=== PATIENT | female | born 1960 | race Caucasian/White ===

== ENCOUNTER 2020-08-07 08:00 | Outpatient (RCR) | payer OTHER, SELFPAY ==
--- NOTE | 2020-08-07 09:32 | MHC.PT.DC ---
[facility] [place] Office [place] Office [place] Office [address] Den[address] Panchal [address] [phone] F: [phone] F: [phone] F: [phone] F: [phone] Physical Therapy Discharge Report Diagnosis: R shoulder pain Date of Surgery: NA Date of Evaluation: 06/17/20 Date of Discharge: 08/07/20 Treatments to Date: 14 Cancellations to Date: 0 No Shows to Date: 0 Discharge Status: Achieved Goals Independent with HEP Discharge Summary: Pt has improved and is independent with all HEPS. She only has pain with hand behind the back IR and end range of shoulder abduction + ER. Pt however is functionally independent and does not have any limitations. Pt has achieved all goals set for her. Pt therefore d/c from therapy today and was advised to continue with shoulder and scap strengthening exercises. Electronically signed by: Beatriz Stearns DPT Please sign and return to therapist. Thank you for your referral.
== END 2020-08-07 09:34 | disposition other institution (70) ==
LOC: HO.PT 08:00
PROVIDERS: PCP Internal Medicine; Visit Provider Orthopaedic Surgery
DX: M24.9 Joint derangement, unspecified (principal)
CPT/HCPCS: 97033; 97110

== ENCOUNTER 2020-11-05 08:08 | Outpatient (REF) | payer BC, SELFPAY ==
--- NOTE | 2020-11-05 08:12 | MM_ITS ---
EXAMINATION: MM SCREENING DIGITAL BREAST TOMOSYNTHESIS, BILATERAL CLINICAL INFORMATION: Screening. Asymptomatic. The lifetime risk of breast cancer based on the Tyrer-Cuzick Model is 21%. COMPARISON: Mammography: 10/31/2019, 10/25/2018, 10/03/2017 TECHNIQUE: Digital breast tomosynthesis is performed in both the craniocaudal and mediolateral oblique views along with computer-aided detection (CAD). Synthesized 2D images are generated from the tomosynthesis. FINDINGS: The breasts are heterogeneously dense, which may obscure small masses (ACR BI-RADS breast composition Category c). There are no significant masses, abnormal calcifications, or other abnormalities. Parenchymal pattern is similar to prior study. No significant changes. MM/MM tomosynthesis screening BI IMPRESSION: No mammographic evidence of malignancy. ASSESSMENT: BI-RADS 1: Negative RECOMMENDATION: 1. Routine annual mammography screening. 2. The lifetime risk of breast cancer based on the Tyrer-Cuzick Model is 21%. Additional annual adjunct screening with breast MRI may be of benefit in women with a risk score of 20% or greater. This patient's information was entered into a reminder system with a target due date for their next mammogram.
== END 2020-11-05 08:09 | disposition home or self-care (01) ==
LOC: HO.MAMMO 08:08
PROVIDERS: PCP Internal Medicine; Visit Provider Internal Medicine
DX: Z12.31 Encounter for screening mammogram for malignant neoplasm of breast (principal)
CPT/HCPCS: 77063; 77067

== ENCOUNTER 2020-12-03 06:06 | Outpatient (REF) | payer BC, SELFPAY ==
[2020-12-03 08:12] LABS: Alanine Aminotransferase 22 U/L (0-31); Albumin Level 4.4 g/dL (3.5-5.0); Alkaline Phosphatase 67 U/L (39-117); Anion Gap 14 (12-20); Aspartate Amino Transferase 27 U/L (5-31); Bilirubin Total 0.9 mg/dL (0.0-1.0); Blood Urea Nitrogen 16 mg/dL (9-16); Calcium 9.5 mg/dL (8.4-10.2); Carbon Dioxide 24 mmol/L (22-29); Chloride 100 mmol/L (96-108); Cholesterol 217 mg/dL; Estimated Glomerular Filt Rate > 60; Glucose Fasting 97 mg/dL (60-99); HDL Cholesterol 63 mg/dL; LDL Cholesterol Calculated 136 mg/dl; Sodium 134 mmol/L (135-145); Total Protein 7.8 g/dL (6.5-8.0); Triglycerides 93 mg/dL
[2020-12-03 08:28] LABS: Vitamin D 25-OH Total 29.9 ng/mL (>30)
== END 2020-12-03 06:07 | disposition home or self-care (01) ==
LOC: HO.LAB 06:06
PROVIDERS: PCP Internal Medicine; Visit Provider Internal Medicine
DX: I10 Essential (primary) hypertension (principal); E55.9 Vitamin D deficiency, unspecified
CPT/HCPCS: 36415; 80053; 80061; 82306

== ENCOUNTER 2021-04-29 08:09 | Outpatient (REF) | payer BC, SELFPAY ==
--- NOTE | ~2021-04-29 | XR_ITS ---
EXAMINATION: XR KNEES, BILATERAL STANDING XR KNEE, RIGHT CLINICAL INFORMATION: Pain COMPARISON: 06/04/2012 TECHNIQUE: AP standing view of both knees and lateral and sunrise views of the right knee FINDINGS: AP standing view of both knees does not demonstrate evidence of fracture or dislocation. Knee joint spaces are maintained without marginal spurring appreciated. No destructive bony lesions. [place] and lateral views of the right knee do not demonstrate evidence of acute fracture or effusion. Sequela of Jake-Schlatter's disease identified. XR/XR knee standing BI IMPRESSION: No significant abnormality identified. Sequela of Jake-Schlatter's disease right knee.
--- NOTE | ~2021-04-29 | XR_ITS ---
EXAMINATION: XR KNEES, BILATERAL STANDING XR KNEE, RIGHT CLINICAL INFORMATION: Pain COMPARISON: 06/04/2012 TECHNIQUE: AP standing view of both knees and lateral and sunrise views of the right knee FINDINGS: AP standing view of both knees does not demonstrate evidence of fracture or dislocation. Knee joint spaces are maintained without marginal spurring appreciated. No destructive bony lesions. [place] and lateral views of the right knee do not demonstrate evidence of acute fracture or effusion. Sequela of Jake-Schlatter's disease identified. XR/XR knee RT 2V IMPRESSION: No significant abnormality identified. Sequela of Jake-Schlatter's disease right knee.
== END 2021-04-29 08:10 | disposition home or self-care (01) ==
LOC: HO.HOSX 08:09
PROVIDERS: Visit Provider Orthopaedic Surgery
DX: M23.91 Unspecified internal derangement of right knee (principal)
CPT/HCPCS: 73560; 73565

== ENCOUNTER 2021-05-11 07:16 | Outpatient (REF) | payer BC, SELFPAY ==
--- NOTE | ~2021-05-11 | MR_ITS ---
EXAMINATION: MR KNEE WITHOUT CONTRAST, RIGHT CLINICAL INFORMATION: Unspecified internal derangement of right knee. Patient reports right knee pain, medial, ?wear and tear, bending causes pain, swelling (subsided), no recent injury and no previous surgery. COMPARISON: XR right knee 04/29/2021. TECHNIQUE: MRI of the knee without contrast was performed using routine sequences on a high-field scanner. FINDINGS: MENISCI: Medial Meniscus: There is a subtle horizontal tear along the inferior surface of the posterior horn of the medial meniscus extending toward the junction with the body. There appears to be at least 1 extension to the mid inferior surface. There is focal irregular blunting of the free edge of the body consistent with fraying or tear. There may be a subtle thin inferiorly displaced flap-type fragment extending to the meniscotibial recess. Lateral Meniscus: Intact LIGAMENTS: Cruciate: Intact Collateral: Intact EXTENSOR MECHANISM: The quadriceps tendon is intact. There is intermediate signal and small ossifications associated with the distal patellar tendon, as well as hypertrophic change of the tibial tubercle, consistent with Jake-Schlatter's disease which is likely chronic. ARTICULAR CARTILAGE/BONE: Patellofemoral Compartment: There is a suggestion of mild cartilage thinning in the femoral trochlea. The patellar cartilage is intact. Medial Compartment: There is mild cartilage thinning in the central to medial weightbearing portion of the medial femoral condyle and the medial aspect of the medial tibial plateau. Lateral Compartment: Normal JOINT FLUID AND BURSAE: Normal MR/MR knee RT wo con IMPRESSION: 1. Undersurface tear at the junction of the posterior horn and body of the medial meniscus. Focal free-edge tear of the body and suspected subtle inferiorly displaced flap-type tear extending to the meniscotibial recess. 2. Old Jake-Schlatter's disease. 3. Mild arthrosis in the femoral trochlea and the weightbearing medial compartment.
== END 2021-05-11 07:17 | disposition home or self-care (01) ==
LOC: HO.MRI 07:16
PROVIDERS: Visit Provider Orthopaedic Surgery
DX: M23.91 Unspecified internal derangement of right knee (principal)
CPT/HCPCS: 73721

== ENCOUNTER → 2021-05-13 11:04 | Outpatient (BNVA) | payer BC, SELFPAY | PROVIDERS: PCP Internal Medicine; Visit Provider Orthopaedic Surgery ==

== ENCOUNTER 2021-06-02 08:27 | Day surgery (SDC) | payer BC, SELFPAY ==
--- NOTE | 2021-06-01 09:19 | P.CONAN_ITS ---
Documented by User: Angely Kinney NP 06/01/21 09:19 HPI - Anesthesia Eval Consult details Narrative: 60yo F for Right Knee Arthroscopy PMFSH Active Problems Active Problems: All Active Problems (Updated 05/13/21 @ 11:23 by Gaston Mccrary MD) Internal derangement of right knee (Acute) Tear of medial meniscus of right knee (Acute) Plantar fasciitis, right (Acute) Dyslipidemia (Acute) Hypovitaminosis D (Acute) Essential hypertension (Acute) Past Medical History Medical History Dyslipidemia Essential hypertension Hypovitaminosis D Plantar fasciitis, right Family History Family History Father Hypertension Diabetes CVD (cardiovascular disease) Mother Hypertension Thyroid disease Uterine cancer Breast cancer Maternal Aunt Breast cancer Sister Alive and well Surgical History Surgical History History of arthroscopy of left knee History of colonoscopy History of hand surgery Social History Social History Alcohol intake: current Alcohol intake frequency: a few times a month Alcohol type: beer Patient Tobacco Use Status: Former Tobacco user Quit Date: 2011 Tobacco use type: Cigarette Years Smoked: 20 Smoked in Last 30 Days: No Use of substances other than those prescribed or required for medical reasons: No Are you DNR?: No Advance Directives: No Advance Directives Information Provided: Yes Advance Directives Date on File: 07/10/20 Current occupational status: employed 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 Handed Meds Allergies Allergy/AdvReac Type Severity Reaction Status Date / Time cefazolin Allergy Unknown hives Verified 06/02/21 08:37 Exam Exam Date and Time: June 01, 2021 09 Assessment and Plan Assessment Anesthesia Assessment: Chart Reviewed Documented by User: Jaimee Huerta MD 06/02/21 08:56 PMFSH Past Medical History Medical History Dyslipidemia Essential hypertension Hypovitaminosis D Plantar fasciitis, right Family History Family History Father Hypertension Diabetes CVD (cardiovascular disease) Mother Hypertension Thyroid disease Uterine cancer Breast cancer Maternal Aunt Breast cancer Sister Alive and well Family history of problems with anesthesia: No Surgical History Surgical History History of arthroscopy of left knee History of colonoscopy History of hand surgery History of Problems with Anesthesia: No Social History Social History Alcohol intake: current Alcohol intake frequency: a few times a month Alcohol type: beer Patient Tobacco Use Status: Former Tobacco user Quit Date: 2011 Tobacco use type: Cigarette Years Smoked: 20 Smoked in Last 30 Days: No Use of substances other than those prescribed or required for medical reasons: No Are you DNR?: No Advance Directives: No Advance Directives Information Provided: Yes Advance Directives Date on File: 07/10/20 Current occupational status: employed 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 Allergies Allergy/AdvReac Type Severity Reaction Status Date / Time cefazolin Allergy Unknown hives Verified 06/02/21 08:37 Exam Airway Mallampati Class: II TM Dist: >3cm Neck ROM: Full Assessment and Plan Assessment Anesthesia Assessment: Anesthesia Plan Discussed Final Anesthetic Review Family History of Problems with Anesthesia: No History of Problems with Anesthesia: No NPO: Yes ASA Class: II Final Preanesthetic Review: No Changes in Pt Med Stat, Meds/Allgs Chart Reviewed, Consent Obtained/Reviewed and Anes Risks/Benef Reviewed Patient Risk: Low Procedure Risk: Low Assessment/Block/Sedation in SS: Assess/Block/Sedation-SS Anesthetic Plan Anesthetic Plan: GA Disposition: Standard PACU
[2021-06-02 08:40] VITALS: BMI 28.0
[2021-06-02 08:47] VITALS: BP 153/83; PULSE 83; RESP 16; TEMP 36.6; O2SAT 97
[2021-06-02] MEDS: Lactated Ringers 1,000 ML 100 ML IVCONT (08:57)
[2021-06-02 10:30] VITALS: BP 140/76; PULSE 83; RESP 12; TEMP 36.5; O2SAT 99
[2021-06-02 10:35] VITALS: BP 117/97; PULSE 89; RESP 16; O2SAT 95
[2021-06-02 10:40] VITALS: BP 136/73; PULSE 83; RESP 18; O2SAT 95
[2021-06-02 10:45] VITALS: BP 124/73; PULSE 80; RESP 18; O2SAT 95
--- NOTE | 2021-06-02 10:48 | MHC.SHP ---
Pre-Procedural Eval Section A Date of Service: 06/02/21 The patient is an INPATIENT: No Changes since office visit: Yes Patient answered all questions; No Cold of Flu in the past 2 weeks, No New Medical Problems and No Changes in Medication The History & Physical has been completed within 30 days and I have reviewed it.: Yes Section B Chief Complaint: tear of medial meniscus Allergies: Allergies Allergy/AdvReac Type Severity Reaction Status Date / Time cefazolin Allergy Unknown hives Verified 06/02/21 08:37 Plan I have reviewed the history and physical and performed a pertinent physical examination on my patient. No changes have occurred unless specified.
[2021-06-02 11:01] VITALS: BP 125/70; PULSE 77; RESP 18; TEMP 36.7; O2SAT 95
--- NOTE | 2021-06-25 13:58 | P.OP_ITS ---
Operative Note Operative Note Date of Service: 06/02/21 Narrative: Pre-op diagnosis: Right knee medial meniscus tear Post-op diagnosis: same Procedure: REight knee medial partial meniscectomy Surgeon: Gaston Mccrary MD Anesthesia: GETA and local Was an Research Tech used for this Procedure?: No Estimated blood loss (mL): 0 Pathology: none sent Condition: stable Disposition: PACU Patient was brought to the operating room placed supine on the arthroscopic table and prepped and draped in standard sterile fashion. A time-out was called to identify proper site proper procedure proper surgeon and IV antibiotics per weight were administered. I began by exsanguinating the limb and insufflating tourniquet to 300 mm Hg. Then made a standard anterolateral stab incision. The knee was insufflated with saline and a 30 degree arthroscope was placed. There was grade 1 fibrillations of the patella but overall suprapatellar pouch was clean and the gutters were clean. I descended into the medial compartment where I made my medial portal under direct visualization. There was obvious of complex tear of the body and posterior horn of the medial meniscus. Root was intact and there was grade 1 changes with some scattered grade 2 changes throughout the medial compartment. I used a combination of biter shaver and cautery to remove unstable portions of the meniscus. Approximally 40% meniscal volume was removed. Once I was satisfied with this the ACL was examined and found to be intact and the lateral compartment also was without the need for intervention. I then removed all instrumentation and closed the portals with skin glue. 25 mL of 2% Marcaine with epinephrine was injected into the joint and the surrounding soft tissues. Patient was then placed in sterile dressing extubated brought recovery room stable condition. There were no known complications.
--- NOTE | 2021-06-25 13:58 | P.BOP_ITS ---
Brief Operative Note Date of Service: 06/02/21 Pre-op diagnosis: Right knee medial meniscus tear Post-op diagnosis: same Procedure: REight knee medial partial meniscectomy Surgeon: Gaston Mccrary MD Anesthesia: GETA and local Was an Track Moving Machine Operator used for this Procedure?: No Estimated blood loss (mL): 0 Pathology: none sent Condition: stable Disposition: PACU
== END 2021-06-02 11:44 | disposition home or self-care (01) ==
PROVIDERS: PCP Internal Medicine; Visit Provider Orthopaedic Surgery
PROC: (CPT 29870; principal; 2021-06-02 10:00)
DX: S83.231A Complex tear of medial meniscus, current injury, right knee, initial encounter (principal); X58.XXXA Exposure to other specified factors, initial encounter; Y93.89 Activity, other specified; Y92.9 Unspecified place or not applicable; Y99.8 Other external cause status; M72.2 Plantar fascial fibromatosis; E78.5 Hyperlipidemia, unspecified; I10 Essential (primary) hypertension; E55.9 Vitamin D deficiency, unspecified; Z79.899 Other long term (current) drug therapy; Z88.1 Allergy status to other antibiotic agents; Z87.891 Personal history of nicotine dependence
CPT/HCPCS: 29881; J0171; J1100; J2250; J2405; J3010

== ENCOUNTER → 2021-06-10 09:05 | Outpatient (BNVA) | payer BC, SELFPAY | PROVIDERS: PCP Internal Medicine; Visit Provider Orthopaedic Surgery ==

== ENCOUNTER 2021-06-11 06:01 | Outpatient (REF) | payer BC, SELFPAY ==
[2021-06-11 07:51] LABS: Alanine Aminotransferase 13 U/L (0-31); Albumin Level 4.4 g/dL (3.5-5.0); Alkaline Phosphatase 69 U/L (39-117); Anion Gap 14 (12-20); Aspartate Amino Transferase 17 U/L (5-31); Bilirubin Total 0.9 mg/dL (0.0-1.0); Blood Urea Nitrogen 14 mg/dL (9-16); Calcium 9.8 mg/dL (8.4-10.2); Carbon Dioxide 22 mmol/L (22-29); Chloride 101 mmol/L (96-108); Cholesterol 221 mg/dL; Estimated Glomerular Filt Rate > 60; Glucose Fasting 103 mg/dL (60-99); HDL Cholesterol 57 mg/dL; LDL Cholesterol Calculated 132 mg/dl; Sodium 133 mmol/L (135-145); Total Protein 7.5 g/dL (6.5-8.0); Triglycerides 161 mg/dL
[2021-06-17 19:46] LABS: Vitamin D 25-OH, D2 <4 ng/mL; Vitamin D 25-OH, D3 40 ng/mL; Vitamin D 25-OH, Total 40 ng/mL (30-100)
== END 2021-06-11 06:02 | disposition home or self-care (01) ==
LOC: HO.LAB 06:01
PROVIDERS: PCP Internal Medicine; Visit Provider Internal Medicine
DX: E78.5 Hyperlipidemia, unspecified (principal); E55.9 Vitamin D deficiency, unspecified
CPT/HCPCS: 36415; 80053; 80061; 82306

== ENCOUNTER → 2021-07-09 09:34 | Outpatient (BNVA) | payer BC, SELFPAY | PROVIDERS: Visit Provider Orthopaedic Surgery | DX: S83.241A Other tear of medial meniscus, current injury, right knee, initial encounter (principal) | CPT/HCPCS: 20610; J1100 ==

== ENCOUNTER → 2021-07-26 09:19 | Outpatient (BNVA) | payer BC, SELFPAY | PROVIDERS: Visit Provider Orthopaedic Surgery ==

== ENCOUNTER 2021-08-05 08:00 | Outpatient (RCR) | payer BC, SELFPAY ==
--- NOTE | 2021-07-15 08:49 | MHC.PT.EP ---
[facility] [place] Office [place] Office [place] Office [address] Johan Panchal [address] [phone] F: [phone] F: [phone] F: [phone] F: [phone] Physical Therapy Plan of Care Date of Evaluation: Date of Surgery: 06/02/21 Diagnosis: other tear of medial meniscus, current injury, R knee Assessment: 61 y/o F s/p R knee menisectomy 06/02/21. She RTW but had increased pain, so she is OOW again. 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 Examination shows decreased R knee AROM (0-10-110), decreased R LE strength (especially glut strength), decreased R gastroc and quad length, increased TTP R medial TF joint line and pes anserine, and impaired gait pattern. She is a runner and would also like to return to running eventually. Recommend PT 2x/week for 6 weeks to address impairments, implement HEP, and optimize functional mobility. Frequency and Duration: The patient will be seen 2x/week for 5 weeks Short Term Goals: 3 weeks: 1. I with HEP 2. Improve R knee extension AROM to 0 3. Improve R knee flexion AROM to 120 4. Demonstrate SLR without lag 10/10x Halfway Goals: 6 weeks 1. I with HEP and self management of sx 2. Pt will improve R LE strength by one MMT to facilitate walking 3. Pt will ascend/descend stairs in step through pattern with pain < 3/10 4. Pt will be able to ambulate > 45 min without antalgic gait pattern and pain < 3/10 Treatment Plan: Modalities to reduce pain, spasms and effusion. Manual therapy to restore motion and function. Therapeutic exercise to improve strength and flexibility. Neuromuscular re-education for posture and balance. Therapeutic activities to return to functional activities of daily living. Electronically signed by: Halina Zazueta PT Please sign and return to therapist. Thank you for your referral.
--- NOTE | 2021-09-14 15:08 | MHC.PT.DC ---
[facility] [place] Office [place] Office [place] Office [address] Johan Panchal 140 [facility] [phone] F: [phone] F: [phone] F: [phone] F: [phone] Physical Therapy Discharge Report Diagnosis: other tear of medial meniscus, current injury, R knee Date of Surgery: 06/02/21 Date of Evaluation: 07/15/21 Date of Discharge: 09/14/21 Treatments to Date: 6 Cancellations to Date: 0 No Shows to Date: 0 Discharge Status: Discharge Summary: Pt was making gradual progress with ROM and strength, however she continues to have discomfort in knee. She requested f/u with orthopedics and holding PT. D/c at this time due to lack of f/u (pt was called but never returned calls.) Electronically signed by: Halina looney PT Please sign and return to therapist. Thank you for your referral.
== END 2021-09-14 15:08 | disposition home or self-care (01) ==
LOC: HO.PT 08:00
PROVIDERS: PCP Internal Medicine; Visit Provider Orthopaedic Surgery
DX: S83.241D Other tear of medial meniscus, current injury, right knee, subsequent encounter (principal)
CPT/HCPCS: 97014; 97110; 97161; 97530

== ENCOUNTER → 2021-08-23 08:25 | Outpatient (BNVA) | payer BC, SELFPAY | PROVIDERS: PCP Internal Medicine; Visit Provider Orthopaedic Surgery | DX: M17.11 Unilateral primary osteoarthritis, right knee (principal) | CPT/HCPCS: 20610; J1100 ==

== ENCOUNTER 2021-11-08 07:16 | Outpatient (REF) | payer BC, SELFPAY ==
--- NOTE | ~2021-11-08 | MM_ITS ---
EXAMINATION: MM SCREENING DIGITAL BREAST TOMOSYNTHESIS, BILATERAL CLINICAL INFORMATION: Screening. Asymptomatic. The lifetime risk of breast cancer based on the Tyrer-Cuzick Model is 14%. COMPARISON: Mammography: 11/05/2020, 10/31/2019, 10/25/2018, 09/28/2016 TECHNIQUE: Digital breast tomosynthesis is performed in both the craniocaudal and mediolateral oblique views along with computer-aided detection (CAD). Synthesized 2D images are generated from the tomosynthesis. FINDINGS: The breasts are heterogeneously dense, which may obscure small masses (ACR BI-RADS breast composition Category c). Right breast shows no significant change from prior studies. There is no developing density or architectural abnormality. Neither breast shows abnormal calcific. The bilateral axilla and skin contours are unremarkable. Left CC view has asymmetric density central breast 8 cm from nipple. There is no MLO correlate. Finding may represent summation artifact or incompletely compressed glandular tissue. Patient will be recalled for additional imaging. MM/MM tomosynthesis screening BI IMPRESSION: 1. Left: Asymmetric density central breast limited to CC view, possibly summation artifact or incompletely compressed glandular tissue. 2. Right: No mammographic evidence of malignancy. ASSESSMENT: BI-RADS 0: Incomplete - Need Additional Imaging Evaluation RECOMMENDATION: 1. Additional views of the left breast (spot CC; rolled CC x 2). 2. Targeted ultrasound if warranted after review of the additional views. 3. Radiology department staff will contact the patient for additional imaging. This patient's information was entered into a reminder system with a target due date for their next mammogram.
== END 2021-11-08 07:17 | disposition home or self-care (01) ==
LOC: HO.MAMMO 07:16
PROVIDERS: PCP Internal Medicine; Visit Provider Internal Medicine
DX: Z12.31 Encounter for screening mammogram for malignant neoplasm of breast (principal)
CPT/HCPCS: 77063; 77067

== ENCOUNTER 2021-11-25 13:49 | Outpatient (REF) | payer BC, SELFPAY ==
--- NOTE | ~2021-11-25 | MM_ITS ---
EXAMINATION: MM DIAGNOSTIC DIGITAL BREAST TOMOSYNTHESIS, LEFT CLINICAL INFORMATION: Recall from screening for asymmetric density central breast on CC view, likely summation artifact or incompletely compressed glandular tissue. COMPARISON: Mammography: 11/08/2021, 11/05/2020, 10/31/2019 TECHNIQUE: Digital breast tomosynthesis is performed. 2D images are generated from the tomosynthesis. The following views are obtained: Rolled CC x2, CC, spot CC. FINDINGS: The breasts are heterogeneously dense, which may obscure small masses (ACR BI-RADS breast composition Category c). Parenchymal pattern is similar to prior studies. There is no persistent asymmetric density and no underlying mass or architectural abnormality. Results are discussed with the patient at time of visit. MM/MM tomosynthesis added views L IMPRESSION: Additional views show no significant changes from prior exams. No persistent asymmetric density. ASSESSMENT: BI-RADS 1: Negative RECOMMENDATION: Routine annual mammography screening. This patient's information was entered into a reminder system with a target due date for their next mammogram.
== END 2021-11-25 13:50 | disposition home or self-care (01) ==
LOC: HO.MAMMO 13:49
PROVIDERS: PCP Internal Medicine; Visit Provider Internal Medicine
DX: R92.2 Inconclusive mammogram (principal)
CPT/HCPCS: 77061; 77065

== ENCOUNTER → 2021-12-16 09:19 | Outpatient (BNVA) | payer BC, SELFPAY | PROVIDERS: PCP Internal Medicine; Visit Provider Orthopaedic Surgery ==

== ENCOUNTER 2022-02-16 08:21 | Outpatient (REF) | payer BC, SELFPAY ==
[2022-02-22 10:47] LABS: HPV mRNA E6/E7 rflx Not Detected (Not Detected)
== END 2022-02-16 08:22 | disposition home or self-care (01) ==
LOC: HO.LAB 08:21
PROVIDERS: PCP Internal Medicine; Visit Provider Advanced Practice Midwife
DX: Z01.419 Encounter for gynecological examination (general) (routine) without abnormal findings (principal); Z11.51 Encounter for screening for human papillomavirus (HPV)
CPT/HCPCS: 87624; 88142

== ENCOUNTER → 2022-02-22 10:43 | Outpatient (BNVA) | payer BC, SELFPAY | PROVIDERS: PCP Internal Medicine; Visit Provider Nurse Practitioner Family | DX: M22.41 Chondromalacia patellae, right knee (principal) ==

== ENCOUNTER 2022-04-09 07:15 | Outpatient (REF) | payer BC, SELFPAY ==
[2022-04-09 08:09] LABS: Alanine Aminotransferase 20 U/L (0-31); Albumin Level 4.5 g/dL (3.5-5.0); Alkaline Phosphatase 68 U/L (39-117); Anion Gap 10 (12-20); Aspartate Amino Transferase 24 U/L (5-31); Bilirubin Total 0.8 mg/dL (0.0-1.0); Blood Urea Nitrogen 14 mg/dL (9-16); Calcium 9.8 mg/dL (8.4-10.2); Carbon Dioxide 26 mmol/L (22-29); Chloride 103 mmol/L (96-108); Cholesterol 217 mg/dL; Estimated Glomerular Filt Rate > 60; Glucose Fasting 103 mg/dL (60-99); HDL Cholesterol 59 mg/dL; LDL Cholesterol Calculated 141 mg/dl; Potassium 4.2 mmol/L (3.3-5.1); Sodium 135 mmol/L (135-145); Triglycerides 85 mg/dL
[2022-04-09 08:32] LABS: Thyroid Stimulating Hormone 1.38 uIU/mL (0.32-4.0)
[2022-04-14 11:17] LABS: Vitamin D 25-OH, D2 <4 ng/mL; Vitamin D 25-OH, D3 41 ng/mL; Vitamin D 25-OH, Total 41 ng/mL (30-100)
== END 2022-04-09 07:16 | disposition home or self-care (01) ==
LOC: HO.LAB 07:15
PROVIDERS: PCP Internal Medicine; Visit Provider Internal Medicine
DX: Z00.00 Encounter for general adult medical examination without abnormal findings (principal); E66.3 Overweight; E78.5 Hyperlipidemia, unspecified; E55.9 Vitamin D deficiency, unspecified
CPT/HCPCS: 36415; 80053; 80061; 82306; 84443

== ENCOUNTER 2022-05-11 06:03 | Outpatient (REF) | payer BC, SELFPAY ==
--- NOTE | ~2022-05-11 | FL_ITS ---
EXAMINATION: XR FLUOROSCOPY WITH IMAGES CLINICAL INFORMATION: M25.561 - Pain in right knee COMPARISON: Radiographs right knee 04/29/2021 TECHNIQUE: Fluoroscopy performed by Dr. Kaiser Francois. Fluoroscopy time: less than 10 seconds. Cumulative Dose: 0.486 mGy. DAP: 0.132 Gy-cm2. Images: 2. FINDINGS: There is a spinal needle adjacent to the femur at junction of diaphysis and metaphysis, medial side, mid depth. There is a spinal needle adjacent to the proximal tibia at junction of metaphysis and diaphysis on medial side mid depth. FL/FL guidance in treatment room IMPRESSION: Fluoroscopy for pain management procedures.
== END 2022-05-11 06:04 | disposition home or self-care (01) ==
LOC: HO.RADIR 06:03
PROVIDERS: Visit Provider Internal Medicine
DX: M22.41 Chondromalacia patellae, right knee (principal); M25.561 Pain in right knee
CPT/HCPCS: 64450; 64454

== ENCOUNTER 2022-11-10 07:17 | Outpatient (REF) | payer BC, SELFPAY ==
--- NOTE | ~2022-11-10 | MM_ITS ---
EXAMINATION: MM SCREENING DIGITAL BREAST TOMOSYNTHESIS, BILATERAL CLINICAL INFORMATION: Screening. Asymptomatic. The lifetime risk of breast cancer based on the Tyrer-Cuzick Model is 15%. COMPARISON: Mammography: November 25, 2021 and studies dating back to September 28, 2016 TECHNIQUE: Digital breast tomosynthesis is performed in both the craniocaudal and mediolateral oblique views along with computer-aided detection (CAD). Synthesized 2D images are generated from the tomosynthesis. FINDINGS: The breasts are heterogeneously dense, which may obscure small masses (ACR BI-RADS breast composition Category c). There are no significant masses, abnormal calcifications, or other abnormalities. MM/MM tomosynthesis screening BI IMPRESSION: No significant changes from prior exam. ASSESSMENT: BI-RADS 1: Negative RECOMMENDATION: Routine annual mammography screening. This patient's information was entered into a reminder system with a target due date for their next mammogram.
== END 2022-11-10 07:18 | disposition home or self-care (01) ==
LOC: HO.MAMMO 07:17
PROVIDERS: PCP Internal Medicine; Visit Provider Internal Medicine
DX: Z12.31 Encounter for screening mammogram for malignant neoplasm of breast (principal)
CPT/HCPCS: 77063; 77067

== ENCOUNTER 2023-03-28 07:20 | Outpatient (REF) | payer BC, SELFPAY ==
[2023-03-28 08:59] LABS: Alanine Aminotransferase 21 U/L (0-31); Albumin Level 4.3 g/dL (3.5-5.0); Alkaline Phosphatase 65 U/L (39-117); Anion Gap 14 (12-20); Aspartate Amino Transferase 26 U/L (5-31); Bilirubin Total 0.6 mg/dL (0.0-1.0); Blood Urea Nitrogen 13 mg/dL (9-16); Calcium 9.7 mg/dL (8.4-10.2); Carbon Dioxide 24 mmol/L (22-29); Chloride 104 mmol/L (96-108); Cholesterol 206 mg/dL; Estimated Glomerular Filt Rate > 60; Glucose Random 92 mg/dL (60-115); HDL Cholesterol 65 mg/dL; LDL Cholesterol Calculated 120 mg/dl; Potassium 3.6 mmol/L (3.3-5.1); Sodium 138 mmol/L (135-145); Total Protein 7.7 g/dL (6.5-8.0); Triglycerides 105 mg/dL
[2023-03-28 09:18] LABS: TSH reflex Free T4 2.74 uIU/mL (0.32-4.0); Vitamin D 25-OH Total 42.5 ng/mL (>30)
== END 2023-03-28 07:21 | disposition home or self-care (01) ==
LOC: HO.LAB 07:20
PROVIDERS: PCP Internal Medicine; Visit Provider Nurse Practitioner Family
DX: E78.5 Hyperlipidemia, unspecified (principal); E55.9 Vitamin D deficiency, unspecified; E03.9 Hypothyroidism, unspecified
CPT/HCPCS: 36415; 80053; 80061; 82306; 84443

== ENCOUNTER 2023-05-02 07:52 | Outpatient (AMB) | payer BC, SELFPAY ==
[2023-05-02 07:58] VITALS: BP 132/80; BMI 29.6
--- NOTE | 2023-05-02 08:00 | A.OFFPC_ITS ---
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 Accompanied by: Self / Same As Patient Allergies cefazolin Allergy (Intermediate, Verified 05/02/23 08:07) hives Medication List - Last Reconciled 05/02/23 by Kathy Hagen MD cholecalciferol (vitamin D3) 25 mcg PO DAILY 90 days hydrochlorothiazide 25 mg PO DAILY 90 days ibuprofen 800 mg PO TID PRN lisinopril 10 mg PO DAILY Tobacco use date assessed: 12/14/22 Dental Screening Dental Screen Date: 05/02/23 Did you have a dental visit in the last 12 months?: Yes Did you have a dental problem in the last 6 months where you did not have access to dental care?: No Was dental information given to patient?: Patient has dentist HPI HPI Comments History of Present Illness Details This is a 62-year-old female with hypertension, dyslipidemia, internal derangement of right knee and low vitamin-D that comes today for follow-up on her conditions. Blood pressure stable. Cholesterol has improved and since her [place] risk score of having a heart attack or a stroke in the next 10 years is 2.9% there is no need for statins. On ibuprofen for right knee pain that happens occasionally and is aggravated by activity. Vitamin-D normal on supplements. Denies any chest pain or shortness of breath. [facility] Medical History Dyslipidemia Essential hypertension Hypovitaminosis D [place]-Schlatter's disease Overweight (BMI 25.0-29.9) Physical exam Plantar fasciitis, right Surgical History History of arthroscopy of left knee History of arthroscopy of right knee History of colonoscopy History of hand surgery Family History Father Hypertension Diabetes CVD (cardiovascular disease) Mother Hypertension Thyroid disease Uterine cancer Breast cancer Ovarian cancer Bladder cancer Maternal Aunt Breast cancer Sister Alive and well Social History Housing: Condominium Alcohol intake: current Alcohol intake frequency: a few times a month Alcohol type: beer Patient Tobacco Use Status: Former Tobacco user Quit Date: 2011 Tobacco use type: Cigarette Years Smoked: 20 e-Cigarette/Vaping Use: Never Used Second Hand Smoke Exposure: No Advance Directives Date on File: 07/10/20 service: No Current occupational status: employed 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 Blayne Taylor, Auer Jaimes, Daniel Goodman and colleagues, with an educational luis miguel from [employer]. Review of Systems Const All systems reviewed & are unremarkable except as noted in HPI and below Eyes Reports no additional complaints, Denies change in vision and Denies other visual disturbances Card Denies chest pain at rest, Denies chest pain with activity, Denies edema, Denies irregular heart rhythm, Denies claudication, Denies dyspnea, Denies dyspnea on exertion, Denies orthopnea, Denies paroxysmal nocturnal dyspnea and Denies slow heart rate Resp Denies cough, Denies dyspnea and Denies dyspnea on exertion GI Denies abdominal pain, Denies change in bowel habits, Denies excessive flatus, Denies nausea and Denies vomiting Denies urinary incontinence, Denies urinary hesitancy and Denies urinary urgency Musc Denies abnormal gait, Denies atrophy, Denies deformity and Denies limited range of motion Skin/Breast Denies bleeding lesions, Denies changing lesions and Denies rash Neuro Denies abnormal gait and Denies lack of coordination Physical exam (Primary Care) Vital Signs: Last Vital Signs BP 132/80 05/02/23 07:58 BMI result Body Mass Index 29.6 Tobacco/Smoking Status: Tobacco use Status Tobacco use date assessed 12/14/22 05/02/23 08:03 Patient Tobacco Use Status Former Tobacco user 05/02/23 08:03 Tobacco use type Cigarette 05/02/23 08:03 e-Cigarette/Vaping Use Never Used 05/02/23 08:03 Thrive Assessment: Date of Thrive Assessment Date Thrive assessed 12/14/22 05/02/23 08:03 Eyes General: appearance normal, both eyes and all related structures Eyelids: Yes eyelids normal Conjunctivae: conjunctivae normal Neck Neck: Yes normal visual inspection and Yes supple Resp Effort & Inspection: normal respiratory effort Auscultation: clear to auscultation bilaterally Cardio Jugular venous distension: no JVD Rate: regular rate Rhythm: regular rhythm Heart sounds: S1 normal heart sound present and S2 normal heart sound present Extrem General: Yes full ROM Assessment and Plan Assessment & Plan (1) Essential hypertension: Code(s): I10 - Essential (primary) hypertension Plan: Continue lisinopril and hydrochlorothiazide. Blood pressure goal is equal or less than 130/80. (2) Hypovitaminosis D: Code(s): E55.9 - Vitamin D deficiency, unspecified Plan: Continue vitamin-D supplement (3) Dyslipidemia: Code(s): E78.5 - Hyperlipidemia, unspecified Plan: Continue low-cholesterol diet. (4) Internal derangement of right knee: Code(s): M23.91 - Unspecified internal derangement of right knee Plan: Continue ibuprofen as needed. Medications: Refilled ibuprofen 800 mg PO TID PRN 90 tabs 0RF pain Coding Level of Care Code Est Pt Level 4 (28265) Diagnoses Essential hypertension I10 Hypovitaminosis D E55.9 Dyslipidemia E78.5 Internal derangement of right knee M23.91 Time Spent (min) 21
== END 2023-05-02 08:25 | disposition home or self-care (01) ==
PROVIDERS: PCP Internal Medicine; Visit Provider Internal Medicine
DX: I10 Essential (primary) hypertension (principal); E55.9 Vitamin D deficiency, unspecified; E78.5 Hyperlipidemia, unspecified; M23.91 Unspecified internal derangement of right knee
CPT/HCPCS: 99214

== ENCOUNTER 2023-05-17 06:22 | Day surgery (SDC) | payer BC, SELFPAY ==
--- NOTE | 2023-05-16 10:17 | P.CONAN_ITS ---
Documented by User: Angely Kinney NP 05/16/23 10:18 HPI - Anesthesia Eval Consult details Narrative: 62yo F for Colonoscopy PMFSH Active Problems Active Problems: All Active Problems (Updated 02/24/22 @ 23:47 by DENILSON Villela) Jake-Schlatter's disease (Chronic) Right knee pain (Acute) Chondromalacia patellae of right knee (Acute) Overweight (BMI 25.0-29.9) (Acute) Physical exam (Acute) Arthritis of right knee (Acute) Internal derangement of right knee (Acute) Tear of medial meniscus of right knee (Acute) Plantar fasciitis, right (Acute) Dyslipidemia (Acute) Hypovitaminosis D (Acute) Essential hypertension (Acute) Past Medical History Medical History Dyslipidemia Essential hypertension Hypovitaminosis D Jake-Schlatter's disease Overweight (BMI 25.0-29.9) Physical exam Plantar fasciitis, right Family History Family History Father Hypertension Diabetes CVD (cardiovascular disease) Mother Hypertension Thyroid disease Uterine cancer Breast cancer Ovarian cancer Bladder cancer Maternal Aunt Breast cancer Sister Alive and well Family history of problems with anesthesia: No Surgical History Surgical History History of arthroscopy of left knee History of arthroscopy of right knee History of colonoscopy History of hand surgery History of Problems with Anesthesia: No Social History Social History Housing: Condominium Alcohol intake: current Alcohol intake frequency: a few times a month Alcohol type: beer Patient Tobacco Use Status: Former Tobacco user Quit Date: 11 yrs ago Tobacco use type: Cigarette Years Smoked: 20 e-Cigarette/Vaping Use: Never Used Second Hand Smoke Exposure: No Use of substances other than those prescribed or required for medical reasons: No Are you DNR?: No Advance Directives: No Advance Directives Information Provided: Yes Advance Directives Date on File: 07/10/20 service: No Current occupational status: employed 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 Current occupational exposures/hazards: No Sexual orientation: Straight/Heterosexual Gender identity: Female Cognitive needs: No Hearing needs: No Vision needs: No Meds Allergies Allergy/AdvReac Type Severity Reaction Status Date / Time cefazolin Allergy Intermediate hives Verified 05/17/23 06:29 sulfacetamide Allergy Unknown Verified 05/17/23 06:29 Exam Exam Date and Time: May 16, 2023 1017 Pertinent Lab Results Pertinent Lab Results: Laboratory Tests 03/28/23 07:31 Sodium 138 Potassium 3.6 Chloride 104 Carbon Dioxide 24 BUN 13 Creatinine 0.80 Assessment and Plan Assessment Anesthesia Assessment: Chart Reviewed Final Anesthetic Review Family History of Problems with Anesthesia: No History of Problems with Anesthesia: No Documented by User: Lis Powers MD 05/17/23 07:39 PMFSH Active Problems Active Problems: All Active Problems (Updated 02/24/22 @ 23:47 by DENILSON Villela) [place]-Schlatter's disease (Chronic) Right knee pain (Acute) Chondromalacia patellae of right knee (Acute) Overweight (BMI 25.0-29.9) (Acute) Physical exam (Acute) Arthritis of right knee (Acute) Internal derangement of right knee (Acute) Tear of medial meniscus of right knee (Acute) Plantar fasciitis, right (Acute) Dyslipidemia (Acute) Hypovitaminosis D (Acute) Essential hypertension (Acute) Denies SRUTHI Past Medical History Medical History Dyslipidemia Essential hypertension Hypovitaminosis D [place]-Schlatter's disease Overweight (BMI 25.0-29.9) Physical exam Plantar fasciitis, right Family History Family History Father Hypertension Diabetes CVD (cardiovascular disease) Mother Hypertension Thyroid disease Uterine cancer Breast cancer Ovarian cancer Bladder cancer Maternal Aunt Breast cancer Sister Alive and well Surgical History Surgical History History of arthroscopy of left knee History of arthroscopy of right knee History of colonoscopy History of hand surgery Social History Social History Housing: Condominium Alcohol intake: current Alcohol intake frequency: a few times a month Alcohol type: beer Patient Tobacco Use Status: Former Tobacco user Quit Date: 11 yrs ago Tobacco use type: Cigarette Years Smoked: 20 e-Cigarette/Vaping Use: Never Used Second Hand Smoke Exposure: No Use of substances other than those prescribed or required for medical reasons: No Are you DNR?: No Advance Directives: No Advance Directives Information Provided: Yes Advance Directives Date on File: 07/10/20 service: No Current occupational status: employed 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 Current occupational exposures/hazards: No Sexual orientation: Straight/Heterosexual Gender identity: Female Cognitive needs: No Hearing needs: No Vision needs: No Meds Allergies Allergy/AdvReac Type Severity Reaction Status Date / Time cefazolin Allergy Intermediate hives Verified 05/17/23 06:29 sulfacetamide Allergy Unknown Verified 05/17/23 06:29 Exam Height,Weight and Vital Signs: Height 5 ft 1 in Weight 70.307 kg Vital Signs Temp Pulse Resp BP Pulse Ox O2 Del Method 05/17/23 06:34 97.8 F 77 15 140/80 H 95 Room Air Airway Mallampati Class: III TM Dist: >3cm Neck ROM: Full Loose/Missing/Broken Teeth: No (Denies broken, loose, missing teeth. Implant intact) Heart: RRR Lungs: CTAB Assessment and Plan Assessment Anesthesia Assessment: Anesthesia Plan Discussed Final Anesthetic Review NPO: Yes ASA Class: II Final Preanesthetic Review: No Changes in Pt Med Stat, Meds/Allgs Chart Reviewed, Consent Obtained/Reviewed and Anes Risks/Benef Reviewed Patient Risk: Low Procedure Risk: Low Assessment/Block/Sedation in SS: Assess/Block/Sedation-SS Anesthetic Plan Anesthetic Plan: MAC: Disposition: Standard PACU
[2023-05-17 06:29] VITALS: BMI 29.3
[2023-05-17 06:34] VITALS: BP 140/80; PULSE 77; RESP 15; TEMP 36.6; O2SAT 95
[2023-05-17] MEDS: Lactated Ringers 1,000 ML 100 ML IVCONT (06:45)
--- NOTE | 2023-05-17 08:35 | PM.OP ---
Brief Operative Note Date of Service: 05/17/23 Pre-op diagnosis: Screening Post-op diagnosis: other (Diverticulosis) Procedure: Colonoscopy to the cecum and TI Surgeon: Blayne Swan Anesthesia: MAC Was an Center Human Resources Manager used for this Procedure?: No Estimated blood loss (mL): 0 Pathology: none sent Condition: stable Disposition: PACU
[2023-05-17 08:40] VITALS: BP 97/51; PULSE 65; RESP 14; TEMP 36.2; O2SAT 98
[2023-05-17 08:55] VITALS: BP 104/57; PULSE 59; RESP 16; TEMP 35.9; O2SAT 98
--- NOTE | 2023-05-17 09:10 | OP_ITS ---
DATE OF SERVICE: 05/17/2023 SURGEON: Blayne Swan MD INDICATIONS: The patient presents for followup of personal history of tubular adenoma of the colon and colorectal cancer screening. Full consent has been obtained from her for this, including risks of bleeding and perforation. PREOPERATIVE DIAGNOSIS: Colorectal cancer screening and personal history of tubular adenoma of the colon. POSTOPERATIVE DIAGNOSIS: PROCEDURE PERFORMED: Colonoscopy to the cecum and terminal ileum. ESTIMATED BLOOD LOSS: COMPLICATIONS: ANESTHESIA: Monitored anesthesia care. ASSISTANTS: SPECIMENS: POSTOPERATIVE DIAGNOSES: Colorectal cancer screening and personal history of tubular adenoma of the colon, sigmoid diverticulosis, and internal hemorrhoids. DESCRIPTION OF PROCEDURE: The patient was placed in the left lateral decubitus position. The digital rectal exam revealed no abnormalities. The Olympus video pediatric colonoscope was entered into the rectum and advanced easily to the cecum. Once in the cecum, I did identify normal-appearing cecal pouch with appendiceal orifice and a normal-appearing ileocecal valve. The terminal ileum was cannulated and appeared normal. The scope was withdrawn back in the colon. The entire cecum and ileocecal valve appeared normal. The scope was slowly withdrawn assessing all mucosal surfaces carefully. Preparation was excellent. I did not visualize any sign of polyps, colitis, nor angiodysplasia. There was a mild amount of sigmoid diverticulosis. In the rectum, scope was retroflexed visualizing small internal hemorrhoids, but no other pathology. The rectal mucosa appeared normal. Scope was straightened and withdrawn from the patient she tolerated the procedure well and was returned to the recovery area in stable condition. IMPRESSION: 1. Sigmoid diverticulosis. 2. Internal hemorrhoids. PLAN: I would recommend a repeat colonoscopy in 5 years for further screening. She will otherwise see me on a p.r.n. basis. MD BHAVESH Hutchins/CAROLYN / [phone]
== END 2023-05-17 09:22 | disposition home or self-care (01) ==
PROVIDERS: PCP Internal Medicine; Visit Provider Internal Medicine
PROC: 0DJD8ZZ Inspection of Lower Intestinal Tract, Via Natural or Artificial Opening Endoscopic (ICD-10-PCS; CPT 45378; principal; 2023-05-17 07:30)
DX: Z12.11 Encounter for screening for malignant neoplasm of colon (principal); K57.30 Diverticulosis of large intestine without perforation or abscess without bleeding; K64.8 Other hemorrhoids; Z86.010 Personal history of colon polyps; I10 Essential (primary) hypertension; Z79.899 Other long term (current) drug therapy
CPT/HCPCS: 45378

== ENCOUNTER 2023-11-23 07:35 | Outpatient (REF) | payer BC, SELFPAY ==
--- NOTE | ~2023-11-23 | MM_ITS ---
EXAMINATION: MM SCREENING DIGITAL BREAST TOMOSYNTHESIS, BILATERAL CLINICAL INFORMATION: Screening. Asymptomatic. COMPARISON: Mammography: This study is compared with prior exams dating back to 2020. TECHNIQUE: Digital breast tomosynthesis is performed in both the craniocaudal and mediolateral oblique views along with computer-aided detection (CAD). Synthesized 2D images are generated from the tomosynthesis. FINDINGS: The breasts are heterogeneously dense, which may obscure small masses (ACR BI-RADS breast composition Category c). There are grouped calcifications in the medial aspect of the right breast for which additional mammographic imaging with magnification is advised. In the left breast, no are no significant masses, abnormal calcifications, or other abnormalities. MM/MM tomosynthesis screening BI IMPRESSION: Grouped calcifications of the right breast warrant additional mammographic imaging with magnification. No mammographic signs of malignancy left breast. ASSESSMENT: BI-RADS BI-RADS 0 - Incomplete: Needs additional Imaging. RECOMMENDATION: Additional views of the right breast. Radiology department staff will contact the patient for additional imaging. Additional Imaging required This examination should not preclude the clinical evaluation of a suspicious palpable abnormality. This patient's information was entered into a reminder system with a target due date for their next mammogram.
== END 2023-11-23 07:36 | disposition home or self-care (01) ==
LOC: HO.MAMMO 07:35
PROVIDERS: PCP Internal Medicine; Visit Provider Internal Medicine
DX: Z12.31 Encounter for screening mammogram for malignant neoplasm of breast (principal)
CPT/HCPCS: 77063; 77067

== ENCOUNTER → 2023-11-23 07:45 | Outpatient (BNV) | payer BC, SELFPAY | PROVIDERS: PCP Internal Medicine; Visit Provider Radiology Diagnostic Radiology | DX: Z12.31 Encounter for screening mammogram for malignant neoplasm of breast (principal) | CPT/HCPCS: 77063; 77067 ==

== ENCOUNTER 2023-12-21 11:15 | Outpatient (REF) | payer BC, SELFPAY ==
--- NOTE | ~2023-12-21 | MM_ITS ---
EXAMINATION: MM DIAGNOSTIC DIGITAL MAMMOGRAPHY, RIGHT CLINICAL INFORMATION: Follow-up calcifications right breast seen 3:00 axis right breast, posterior one third depth. COMPARISON: Mammography: 11/23/2023, 11/10/2022, 11/25/2021, 11/08/2021, 11/05/2020, and dating back to 10/31/2019. TECHNIQUE: Digital mammography is performed in the following views: Full-field 3-D digital right mediolateral view, and 2-D spot compression right CC and ML views were obtained. FINDINGS: The breasts are heterogeneously dense, which may obscure small masses (ACR BI-RADS breast composition Category c). There are punctate grouped calcifications within the approximate 3:00 axis of the right breast, posterior one third, which have a coarse morphology and are likely benign/dystrophic. Minimal pleomorphism present. No linear, branching, or casting forms. No suspicious distribution. These are probably benign, and six-month follow-up diagnostic mammography right breast recommended to include standard magnification views. No additional abnormalities seen in the right breast. Results are provided to the patient at time of visit by the technologist. MM/MM added views RT IMPRESSION: Probably benign calcifications right breast 3:00 axis, posterior one third. These appear dystrophic and are probably benign. Six-month interval follow-up right mammography recommended. ASSESSMENT: BI-RADS BI-RADS 3 - Probably benign finding(s) - 12 month follow-up suggested RECOMMENDATION: 6 Month F/U This patient's information was entered into a reminder system with a target due date for their next mammogram.
== END 2023-12-21 11:16 | disposition home or self-care (01) ==
LOC: HO.MAMMO 11:15
PROVIDERS: PCP Internal Medicine; Visit Provider Internal Medicine
DX: R92.1 Mammographic calcification found on diagnostic imaging of breast (principal)
CPT/HCPCS: 77065

== ENCOUNTER → 2023-12-21 11:30 | Outpatient (BNV) | payer BC, SELFPAY | PROVIDERS: PCP Internal Medicine; Visit Provider Radiology Diagnostic Radiology | DX: R92.1 Mammographic calcification found on diagnostic imaging of breast (principal) | CPT/HCPCS: 77065 ==

== ENCOUNTER 2024-01-02 07:18 | Outpatient (AMB) | payer BC, SELFPAY ==
--- NOTE | 2024-01-02 07:36 | MHC.PC.OV ---
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 Required: No Accompanied by: Self / Same As Patient Allergies cefazolin Allergy (Intermediate, Verified 01/02/24 07:50) hives sulfacetamide Allergy (Verified 01/02/24 07:50) Unknown Medication List - Last Reconciled 01/02/24 by Kathy Hagen MD cholecalciferol (vitamin D3) 25 mcg PO DAILY 90 days hydrochlorothiazide 25 mg PO DAILY 90 days ibuprofen 800 mg PO TID PRN lisinopril 10 mg PO DAILY Tobacco use date assessed: 01/02/24 Fall risk assessment: No Falls in past year Last assessed Fall Risk: 01/02/24 Dental Screening Dental Screen Date: 01/02/24 Did you have a dental visit in the last 12 months?: Yes Did you have a dental problem in the last 6 months where you did not have access to dental care?: No Was dental information given to patient?: Patient has dentist HPI HPI Comments History of Present Illness Details This is a 63-year-old female that comes for her physical exam. Last mammogram was this month. Will be repeated in 6 months. Last colonoscopy was 2022 showing internal hemorrhoids and next colonoscopy should be in 5 years as per sonogram technician. Last Pap smear was 2021 and was normal. Bone density will be order. No chest pain or shortness of breath. Blood pressure stable. [facility] Medical History Jake-Schlatter's disease Overweight (BMI 25.0-29.9) Physical exam Plantar fasciitis, right Dyslipidemia Hypovitaminosis D Essential hypertension Surgical History (Updated 01/02/24 @ 07:54 by Kathy Hagen MD) History of arthroscopy of right knee History of arthroscopy of left knee History of hand surgery History of colonoscopy Family History Father Hypertension Diabetes CVD (cardiovascular disease) Mother Hypertension Thyroid disease Uterine cancer Breast cancer Ovarian cancer Bladder cancer Maternal Aunt Breast cancer Sister Alive and well Social History Housing: Condominium Alcohol intake: current Alcohol intake frequency: a few times a month Alcohol type: beer Patient Tobacco Use Status: Former Tobacco user Quit Date: 11 yrs ago Tobacco use type: Cigarette Years Smoked: 20 e-Cigarette/Vaping Use: Never Used Second Hand Smoke Exposure: No Advance Directives Date on File: 07/10/20 service: No Current occupational status: employed 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 1. Little interest or pleasure in doing things: not at all 2. Feeling down, depressed, or hopeless: not at all 3. Trouble falling or staying asleep, or sleeping too much: not at all 4. Feeling tired or having little energy: not at all 5. Poor appetite or overeating: not at all 6. Feeling bad about yourself - or that you are a failure or have let yourself or your family down: not at all 7. Trouble concentrating on things, such as reading the newspaper or watching television: not at all 8. Moving or speaking so slowly that other people could have noticed. Or the opposite - being so fidgety or restless that you have been moving around a lot more than usual: not at all 9. Thoughts that you would be better off or of hurting yourself in some way: not at all Total score: 0 Depression Screening Interpretation: Negative Depression Screening Done: Yes 89446 - PHQ-9 Billing: Yes Source: Developed by Drs. Blayne Taylor, Aure Jaimes, Daniel Goodman and colleagues, with an educational luis miguel from [employer]. Thrive Questionnaire Date Thrive assessed: 01/02/24 I am a: Patient What is your living situation today?: I have a steady place to live Within the past 12 months, did the food you bought not last and you didn't have the money to get more?: Never true Within the past 12 months, did you worry whether your food would run out before you got money to buy more?: Never true Do you have trouble paying for medicines?: No Do you have trouble getting transportation to medical appointments?: No Do you have trouble paying your heating and electricity bill?: No Do you have trouble taking care of your child, family member or friend?: No Do you have trouble with day-to-day activities such as bathing, preparing meals, shopping, managing finances, etc.?: No Are you currently unemployed and looking for a job?: No Are you interested in more education?: No Please select the resources that you would like help with: None Currently or been in a relationship where the following occur: no concerns reported THRIVE Score: 0 AUDIT C Alcohol Use Questionnaire (AUDIT-C) 1. How often do you have a drink containing alcohol?: Monthly or less 2. How many drinks containing alcohol do you have on a typical day when you are drinking?: 1 or 2 3. How often do you have six or more drinks on one occasion?: Never Total Score: 1 Score Reviewed/Action Taken: No SRIDHAR-7 AMB Questionnaire SRIDHAR-7 Date SRIDHAR - 7 assessed: 01/02/24 Feeling nervous, anxious, or on edge: 0 = Not at all Not being able to stop or control worryin = Not at all Worrying too much about different things: 0 = Not at all Trouble relaxin = Not at all Being so restless that it is hard to sit still: 0 = Not at all Becoming easily annoyed or irritable: 0 = Not at all Feeling afraid as if something awful might happen: 0 = Not at all Total SRIDHAR-7 score (0-4 normal; 5-9 mild; 10-14 moderate; 15-21 severe): 0 Source: Developed by Drs. Blayne Taylor, Aure Jaimes, Daniel Goodman and colleagues, with an educational luis miguel from [employer]. SRIDHAR-7 Assessment Billing SRIDHAR-7 Assessment Tool: SRIDHAR-7 Assessment 59787 Review of Systems Const All systems reviewed & are unremarkable except as noted in HPI and below Eyes Reports no additional complaints, Denies change in vision and Denies other visual disturbances Card Denies chest pain at rest, Denies chest pain with activity, Denies edema, Denies irregular heart rhythm, Denies claudication, Denies dyspnea, Denies dyspnea on exertion, Denies orthopnea, Denies paroxysmal nocturnal dyspnea and Denies slow heart rate Resp Denies cough, Denies dyspnea and Denies dyspnea on exertion GI Denies abdominal pain, Denies change in bowel habits, Denies excessive flatus, Denies nausea and Denies vomiting Denies urinary incontinence, Denies urinary hesitancy and Denies urinary urgency Musc Denies abnormal gait, Denies atrophy, Denies deformity and Denies limited range of motion Skin/Breast Denies bleeding lesions, Denies changing lesions and Denies rash Neuro Denies abnormal gait and Denies lack of coordination Physical exam (Primary Care) Vital Signs: Last Vital Signs BP 122/70 01/02/24 07:38 BMI result Body Mass Index 31.6 Tobacco/Smoking Status: Tobacco use Status Tobacco use date assessed 01/02/24 01/02/24 07:45 Patient Tobacco Use Status Former Tobacco user 01/02/24 07:45 Tobacco use type Cigarette 01/02/24 07:45 e-Cigarette/Vaping Use Never Used 01/02/24 07:45 PHQ-9: PHQ-9 Score PHQ-9: Total score 0 01/02/24 07:45 Depression Screening Interpretation: Negative Thrive Assessment: Date of Thrive Assessment Date Thrive assessed 01/02/24 01/02/24 07:45 Currently or been in a relationship where the following occur: no concerns reported Const Orientation/consciousness: patient oriented x3 [facility] Head: Yes normal to inspection, Yes normocephalic and Yes atraumatic Ears: external ears normal Eyes General: appearance normal, both eyes and all related structures Eyelids: Yes eyelids normal Conjunctivae: conjunctivae normal Neck Neck: Yes normal visual inspection and Yes supple Resp Effort & Inspection: normal respiratory effort Auscultation: clear to auscultation bilaterally Cardio Jugular venous distension: no JVD Rate: regular rate Rhythm: regular rhythm Heart sounds: S1 normal heart sound present and S2 normal heart sound present GI Inspection: Yes normal to inspection Palpation (GI): Soft to palpation and nontender Auscultation: normal bowel sounds Skin General skin exam: no rashes or lesions noted Neuro General: patient oriented x3 and no focal motor deficits Extrem General: Yes full ROM Psych Appearance: grossly normal Assessment and Plan Assessment & Plan (1) Physical exam: Code(s): Z00.00 - Encounter for general adult medical examination without abnormal findings Plan: Repeat in a year. Orders: Orders XR DEXA axial skeleton Today N95.9 - Unspecified menopausal and perimenopausal disorder Lipid Panel Today Z00.00 - Encounter for general adult medical examination without abnormal findings Comprehensive [place]. Panel Fast Today Z00.00 - Encounter for general adult medical examination without abnormal findings Coding Level of Care Code Est Pt Prev Care 40-64y(05360) Diagnoses Physical exam Z00.00 Additional Codes SRIDHAR-7 Assessment Billing - SRIDHAR-7 Assessment Tool: SRIDHAR-7 Assessment 20291 ([id number]) Time Spent (min) 32
[2024-01-02 07:38] VITALS: BP 122/70; BMI 31.6
== END 2024-01-02 08:00 | disposition home or self-care (01) ==
PROVIDERS: PCP Internal Medicine; Visit Provider Internal Medicine
DX: Z00.00 Encounter for general adult medical examination without abnormal findings (principal)
CPT/HCPCS: 99396

== ENCOUNTER 2024-01-12 08:07 | Outpatient (REF) | payer BC, SELFPAY ==
--- NOTE | ~2024-01-12 | MM_ITS ---
EXAMINATION: BONE DENSITOMETRY CLINICAL INDICATION: Unspecified menopausal and perimenopausal disorder. COMPARISON: This is the patient's baseline examination. TECHNIQUE: Using a [employer] DXA System (software version: 13.1) manufactured by [employer], dual-energy x-ray absorptiometry was performed of the lumbar spine and left hip. The images are of good technical quality. Summary results are attached. FINDINGS: LEFT FEMUR, NECK: BMD 0.981 g/cm2, Z-score 0.8, T-score -0.4, normal. LEFT FEMUR, TOTAL: BMD 1.093 g/cm2, Z-score 1.6, T-score 0.7, normal. AP SPINE L1-L4: BMD 1.096 g/cm2, Z-score 0.6, T-score -0.7, normal. IDENTIFIED RISK FACTORS: Low calcium intake, menopause. HISTORY OF FRACTURE: None listed. MEDICATIONS: Vitamin D. MM/XR DEXA axial skeleton IMPRESSION: 1. DIAGNOSIS: Normal bone density based on the lowest T-score value of -0.7 in the lumbar spine applying World Health Organization criteria. 2. 10-YEAR FRACTURE RISK PREDICTION, FRAX: According to the guidelines, FRAX calculation should only be performed on patients in the osteopenia bone density category. Therefore, FRAX was not performed on this patient. 3. Treatment Recommendations: NOF guidelines recommend consideration for treatment in postmenopausal women and men age 50 and older presenting with the following: -A hip or vertebral (clinical or morphometric) fracture. -T-score less than or equal to -2.5 at the femoral neck or spine after appropriate evaluation to exclude secondary causes. -Low bone mass at the hip or spine and a 10-year fracture probability by FRAX of greater than or equal to 3% for hip fracture or greater than or equal to 20% for major osteoporotic fracture based on the [place] adapted WHO algorithm. 4. Other Recommendations: All treatment decisions require clinical judgment and consideration of individual patient factors, including patient preferences, comorbidities, previous drug use, risk factors not captured in the FRAX model (e.g. frailty, falls, vitamin D deficiency, increased bone turnover, interval significant decline in bone density) and possible under or overestimation of fracture risk by FRAX. FUTURE SCAN RECOMMENDATION: People with diagnosed cases of osteoporosis or at high risk for fracture should have regular bone mineral density tests. For patients eligible for Medicare, routine testing is allowed once every 2 years. The testing frequency can be increased to one year for patients who have rapidly progressing disease, those who are receiving or discontinuing medical therapy to restore bone mass, or have additional risk factors.
== END 2024-01-12 08:08 | disposition home or self-care (01) ==
LOC: HO.MAMMO 08:07
PROVIDERS: PCP Internal Medicine; Visit Provider Internal Medicine
DX: Z13.820 Encounter for screening for osteoporosis (principal); Z78.0 Asymptomatic menopausal state
CPT/HCPCS: 77080

== ENCOUNTER 2024-07-03 10:50 | Outpatient (REF) | payer BC, SELFPAY ==
--- NOTE | ~2024-07-03 | MM_ITS ---
EXAMINATION: MM DIAGNOSTIC DIGITAL BREAST TOMOSYNTHESIS, RIGHT CLINICAL INFORMATION: 6 month follow-up for right breast calcifications. COMPARISON: Mammography: Comparison is made with a relevant prior imaging. TECHNIQUE: Digital breast tomosynthesis is performed in both the craniocaudal and mediolateral oblique views along with computer-aided detection (CAD). Synthesized 2D images are generated from the tomosynthesis. FINDINGS: There are scattered areas of fibroglandular density (ACR BI-RADS breast composition Category b). The previously seen grouped coarse heterogeneous calcifications in the central inner right breast posterior depth are not significantly changed on magnification views for 6 months. There are no significant masses or other abnormalities. MM/MM tomosynthesis diagnostic RT IMPRESSION: Probably benign right breast grouped calcifications. The common six-month follow-up with magnification views of the right breast when the patient is due for her annual mammography. ASSESSMENT: BI-RADS BI-RADS 3 - Probably benign finding(s) - 6 month follow-up suggested RECOMMENDATION: 6 Month F/U Results were provided to the patient at time of visit by the technologist. This patient's information was entered into a reminder system with a target due date for their next mammogram. Electronically signed by: Gisele Bernal DO 07/03/2024 12:13 PM EDT
== END 2024-07-03 10:51 | disposition home or self-care (01) ==
LOC: HO.MAMMO 10:50
PROVIDERS: PCP Internal Medicine; Visit Provider Internal Medicine
DX: R92.1 Mammographic calcification found on diagnostic imaging of breast (principal)
CPT/HCPCS: 77061; 77065

== ENCOUNTER → 2024-07-03 11:00 | Outpatient (BNV) | payer BC, SELFPAY | PROVIDERS: PCP Internal Medicine; Visit Provider Internal Medicine | DX: R92.1 Mammographic calcification found on diagnostic imaging of breast (principal) | CPT/HCPCS: 77061; 77065 ==

== ENCOUNTER 2024-07-09 06:00 | Outpatient (REF) | payer BC, SELFPAY ==
[2024-07-09 08:10] LABS: Alanine Aminotransferase 26 U/L (0-31); Alkaline Phosphatase 54 U/L (39-117); Anion Gap 14 (12-20); Aspartate Amino Transferase 35 U/L (5-31); Bilirubin Total 0.6 mg/dL (0.0-1.0); Blood Urea Nitrogen 16 mg/dL (9-16); Calcium 9.6 mg/dL (8.4-10.2); Carbon Dioxide 21 mmol/L (22-29); Chloride 107 mmol/L (96-108); Cholesterol 221 mg/dL (<200); Estimated Glomerular Filt Rate > 60; Glucose Fasting 91 mg/dL (60-99); HDL Cholesterol 55 mg/dL (>40); LDL Cholesterol Calculated 136 mg/dL (<100); Potassium 4.6 mmol/L (3.3-5.1); Sodium 137 mmol/L (135-145); Total Protein 7.9 g/dL (6.5-8.0); Triglycerides 152 mg/dL (<150)
== END 2024-07-09 06:01 | disposition home or self-care (01) ==
LOC: HO.LAB 06:00
PROVIDERS: PCP Internal Medicine; Visit Provider Internal Medicine
DX: Z00.00 Encounter for general adult medical examination without abnormal findings (principal)
CPT/HCPCS: 36415; 80053; 80061

== ENCOUNTER 2024-07-15 07:22 | Outpatient (AMB) | payer BC, SELFPAY ==
--- NOTE | 2024-07-15 07:29 | A.OFFPC_ITS ---
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 Required: No Accompanied by: Self / Same As Patient Allergies cefazolin Allergy (Intermediate, Verified 07/15/24 07:37) hives sulfacetamide Allergy (Verified 07/15/24 07:37) Unknown Medication List - Last Reconciled 07/15/24 by Kathy Hagen MD cholecalciferol (vitamin D3) 25 mcg PO DAILY 90 days hydrochlorothiazide 25 mg PO DAILY 90 days ibuprofen 800 mg PO TID PRN lisinopril 10 mg PO DAILY Tobacco use date assessed: 01/02/24 Fall risk assessment: No Falls in past year Last assessed Fall Risk: 07/15/24 Dental Screening Dental Screen Date: 07/15/24 Did you have a dental visit in the last 12 months?: Yes Did you have a dental problem in the last 6 months where you did not have access to dental care?: No Was dental information given to patient?: Patient has dentist HPI HPI Comments History of Present Illness Details This is a 64-year-old female with hypertension, dyslipidemia, right knee arthritis and low vitamin-D that comes today for follow-up on her conditions. Blood pressure borderline normal to elevated. She has not take her medications yet. Cholesterol elevated with a [place] risk score of 6.9% and this is why I will start her on statins. Side effects such as myalgias and transaminitis were discussed. On vitamin-D supplements for her low vitamin-D. She takes NSAIDs as needed for pain due to right knee arthritis. Able to walk with no assistive device. Declines flu vaccine today. [facility] Medical History Jake-Schlatter's disease Overweight (BMI 25.0-29.9) Physical exam Plantar fasciitis, right Dyslipidemia Hypovitaminosis D Essential hypertension Surgical History History of arthroscopy of right knee History of arthroscopy of left knee History of hand surgery History of colonoscopy Family History Father Hypertension Diabetes CVD (cardiovascular disease) Mother Hypertension Thyroid disease Uterine cancer Breast cancer Ovarian cancer Bladder cancer Maternal Aunt Breast cancer Sister Alive and well Social History Housing: Condominium Alcohol intake: current Alcohol intake frequency: a few times a month Alcohol type: beer Patient Tobacco Use Status: Former Tobacco user Tobacco use type: Cigarette Years Smoked: 20 e-Cigarette/Vaping Use: Never Used Second Hand Smoke Exposure: No Advance Directives Date on File: 07/10/20 service: No Current occupational status: employed 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 How often do you have a drink containing alcohol?: Monthly or less 2. How many drinks containing alcohol do you have on a typical day when you are drinking?: 1 or 2 3. How often do you have six or more drinks on one occasion?: Never Total Score: 1 Score Reviewed/Action Taken: No SRIDHAR-7 AMB Questionnaire SRIDHAR-7 Date SRIDHAR - 7 assessed: 01/02/24 Source: Developed by Drs. Blayne Taylor, Aure Jaimes, Daniel Goodman and colleagues, with an educational luis miguel from [employer] Review of Systems Const All systems reviewed & are unremarkable except as noted in HPI and below Card Denies chest pain at rest, Denies chest pain with activity, Denies edema, Denies irregular heart rhythm, Denies claudication, Denies dyspnea, Denies dyspnea on exertion, Denies orthopnea, Denies paroxysmal nocturnal dyspnea and Denies slow heart rate Resp Denies cough, Denies dyspnea and Denies dyspnea on exertion GI Denies abdominal pain, Denies change in bowel habits, Denies excessive flatus, Denies nausea and Denies vomiting Physical exam (Primary Care) Vital Signs: Last Vital Signs BP 140/80 H 07/15/24 07:52 BMI result Body Mass Index 31.0 Tobacco/Smoking Status: Tobacco use Status Tobacco use date assessed 01/02/24 07/15/24 07:31 Patient Tobacco Use Status Former Tobacco user 07/15/24 07:31 Tobacco use type Cigarette 07/15/24 07:31 e-Cigarette/Vaping Use Never Used 07/15/24 07:31 Thrive Assessment: Date of Thrive Assessment Date Thrive assessed 01/02/24 07/15/24 07:31 Resp Effort & Inspection: normal respiratory effort Auscultation: clear to auscultation bilaterally Cardio Jugular venous distension: no JVD Rate: regular rate Rhythm: regular rhythm Heart sounds: S1 normal heart sound present and S2 normal heart sound present Extrem General: Yes full ROM Office Procedures Flu Questionnaire Does the patient have a severe egg allergy?: No Immunizations Fluarix Triv [id number] (PF) 45 mcg (15 mcg x 3)/0.5 mL IM syringe Performing Provider: Kathy Hagen MD [facility] Documented (not given) by: CATARINA Downing on 07/15/24 07:53 Reason Not Given: Patient Refused Coding Level of Care Code Est Pt Level 4 (49858) Complex EM visit Add On G2211 Diagnoses Essential hypertension I10 Dyslipidemia E78.5 Hypovitaminosis D E55.9 Arthritis of right knee M17.11 Time Spent (min) 24 Assessment & Plan Assessment & Plan (1) Essential hypertension: Code(s): I10 - Essential (primary) hypertension Category: Medical Plan: Continue lisinopril and hydrochlorothiazide. Blood pressure goal is equal or less than 130/80. (2) Dyslipidemia: Code(s): E78.5 - Hyperlipidemia, unspecified Category: Medical Plan: Start statins. Repeat lipid panel in 6 months. Start low-cholesterol diet. (3) Hypovitaminosis D: Code(s): E55.9 - Vitamin D deficiency, unspecified Category: Medical Plan: Continue vitamin-D supplements. (4) Arthritis of right knee: Code(s): M17.11 - Unilateral primary osteoarthritis, right knee Category: Medical Plan: Continue NSAIDs as needed. Orders: Orders Lipid Panel 6 Months E78.5 - Hyperlipidemia, unspecified Comprehensive [place]. Panel Fast 6 Months I10 - Essential (primary) hypertension Vitamin D 25-OH Total 6 Months E55.9 - Vitamin D deficiency, unspecified Medications: New rosuvastatin 10 mg PO DAILY 90 days 90 tabs 2RF
[2024-07-15 07:32] VITALS: BP 154/86; BMI 31.0
[2024-07-15 07:52] VITALS: BP 140/80
== END 2024-07-15 07:42 | disposition home or self-care (01) ==
PROVIDERS: PCP Internal Medicine; Visit Provider Internal Medicine
DX: I10 Essential (primary) hypertension (principal); E78.5 Hyperlipidemia, unspecified; E55.9 Vitamin D deficiency, unspecified; M17.11 Unilateral primary osteoarthritis, right knee; Z23 Encounter for immunization

== ENCOUNTER → 2024-07-15 07:22 | Outpatient (BNVA) | payer BC, SELFPAY | PROVIDERS: PCP Internal Medicine; Visit Provider Internal Medicine | DX: I10 Essential (primary) hypertension (principal); E78.5 Hyperlipidemia, unspecified; E55.9 Vitamin D deficiency, unspecified; M17.11 Unilateral primary osteoarthritis, right knee; Z79.899 Other long term (current) drug therapy; Z28.21 Immunization not carried out because of patient refusal | CPT/HCPCS: 90471 ==

== ENCOUNTER 2024-12-26 06:11 | Outpatient (REF) | payer MEDICARE, SELFPAY ==
[2024-12-26 07:57] LABS: Alanine Aminotransferase 25 U/L (0-31); Albumin Level 4.2 g/dL (3.5-5.0); Anion Gap 13 (12-20); Aspartate Amino Transferase 27 U/L (5-31); Bilirubin Total 0.7 mg/dL (0.0-1.0); Blood Urea Nitrogen 17 mg/dL (9-16); Calcium 9.2 mg/dL (8.4-10.2); Carbon Dioxide 24 mmol/L (22-29); Chloride 106 mmol/L (96-108); Cholesterol 149 mg/dL (<200); Estimated Glomerular Filt Rate > 60; Glucose Fasting 106 mg/dL (60-99); HDL Cholesterol 67 mg/dL (>40); LDL Cholesterol Calculated 62 mg/dL (<100); Potassium 3.6 mmol/L (3.3-5.1); Sodium 139 mmol/L (135-145); Total Protein 7.9 g/dL (6.5-8.0); Triglycerides 102 mg/dL (<150)
[2024-12-26 08:01] LABS: Alkaline Phosphatase 60 U/L (39-117)
[2024-12-26 08:29] LABS: Vitamin D 25-OH Total 39.8 ng/mL (>30)
== END 2024-12-26 06:12 | disposition home or self-care (01) ==
LOC: HO.LAB 06:11
PROVIDERS: PCP Internal Medicine; Visit Provider Internal Medicine
DX: I10 Essential (primary) hypertension (principal); E78.5 Hyperlipidemia, unspecified; E55.9 Vitamin D deficiency, unspecified
CPT/HCPCS: 36415; 80053; 80061; 82306

== ENCOUNTER 2025-01-08 07:21 | Outpatient (AMB) | payer BC, SELFPAY ==
--- OUTSIDE RECORDS SUMMARY | 2025-01-08 07:24 | XMS_ITS | Patient Health Record ---
Author Organization [facility] Address [address] [place] [address] Care Team Providers Care Electromechanical Inspector Name Role Phone Kathy Silva Primary Care Provider Blayne Thompson Unavailable [phone] Allergies Allergen (clinical drug ingredient) Drug/Non Drug Allergy documented on EMR Reaction Allergy Type Onset Date Status sulfacetamide Sulfacetamide Unknown Drug Allergy Active Reason For Referral No Information Medications Medication SIG (Take, Route, Fr equency, Duration) Notes Start Date End Date Status hydroCHLOROthiazide Active Lisinopril Active Vitamin D 1000 UNIT 1 tablet Orally Once a day Active Problems Problem Type SNOMED Code ICD Code Onset Dates Problem Status W/U Status Risk Notes Problem [id number] Colon cancer screening (Z12.11) Active confirmed Problem 535710948 Encounter for screening for malignant neoplasm of colon (Z12.11) Active confirmed Problem 100665150 History of adenomatous polyp of colon (Z86.010) Active confirmed Problem History of polyp of colon (situation) (617216357) Personal history of colonic polyps (Z86.010) Active confirmed Problem Screening for malignant neoplasm of rectum (032855301) Encounter for screening for malignant neoplasm of rectum (Z12.12) Active confirmed Problem 92472164 Preprocedural examination (Z01.818) Active confirmed Problem 364985004365853 Pre-procedural examination (Z01.818) Active confirmed Problem Diverticulosis of colon (481283463) Diverticulosis of colon (K57.30) Active confirmed Plan Of Treatment Future Test Test Name Order Date COLONOSCOPY 10/13/2015 COLONOSCOPY 02/14/2023 Insurance Providers Payer Name Payer Address Payer Phone Subscriber Number Group Number Insured Name Patient Relationship to Insured Coverage Start Date Coverage End Date [facility] [employer] [address] [place] [address] [id number] Self - patient is the insured Medical (General) History Medical History History ICD Code Hypertension Denies ME,DM,CVA,Lung disease,renal dise ase Colonoscopy 12/2015 with a small tubular adenoma Surgical History Surgery Date(Month/Year) knee surgery
--- NOTE | 2025-01-08 07:33 | A.OFFPC_ITS ---
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 Accompanied by: Self / Same As Patient Allergies cefazolin Allergy (Intermediate, Verified 01/08/25 07:47) hives sulfacetamide Allergy (Verified 01/08/25 07:47) Unknown Medication List - Last Reconciled 01/08/25 by Kathy Hagen MD hydrochlorothiazide 25 mg PO DAILY 90 days ibuprofen 800 mg PO TID PRN lisinopril 10 mg PO DAILY rosuvastatin 10 mg PO DAILY 90 days Tobacco use date assessed: 01/08/25 Fall risk assessment: 1 Fall in past year Last assessed Fall Risk: 01/08/25 Dental Screening Dental Screen Date: 01/08/25 Did you have a dental visit in the last 12 months?: Yes Did you have a dental problem in the last 6 months where you did not have access to dental care?: No Was dental information given to patient?: Patient has dentist HPI HPI Comments History of Present Illness Details The patient is a 64-year-old female presenting for physical exam. She follows a routine preventive care schedule, including having received a tetanus vaccine in 2016 with the next one due in 2026. Post-64, she is scheduled to receive a pneumonia vaccine. A bone density scan conducted in 2023 returned normal, with the next scan due in January 2026. The patient had undergone a mammogram in June, resulting in probably benign findings in the right breast, necessitating a six-month follow-up. An annual mammogram for the left breast is also scheduled. Her Pap smear in 2021 excluded the need for further tests post-64. Following a colonoscopy by Dr. Swan in 2022 with no polyps detected, a return schedule will be communicated. The patient manages hypertension with 25 mg hydrochlorothiazide and 10 mg lisinopril, in addition to managing hyperlipidemia with 10 mg rosuvastatin, reduced to half due to adverse muscular symptoms. Her fasting blood glucose has risen to 106, suggesting the onset of prediabetes, which she is addressing with increased gym activity. Renal and hepatic functions are optimal. Cholesterol levels have improved from 221 to 149 following her medication adjustment. The patient uses ibuprofen as needed for knee pain and has voiced a preference for gel vitamin D supplements. - Tetanus vaccination: Administered in 2 017; next due in 2026. - Pneumonia vaccine: Recommended now as patient is over 65. - Bone density scan: Normal results in 2 024; next due in January 2026. - Mammogram: Follow-up scheduled for rig ht breast in six months and annual exam for left breast due now. - Last Pap smear: Completed in 2021; no further tests indicated as patient is over 65. - Colonoscopy in 2022: No polyps; follow -up interval to be determined. - Increased physical activity due to christal vated fasting blood glucose. [facility] Medical History Hilmar-Schlatter's disease Overweight (BMI 25.0-29.9) Physical exam Plantar fasciitis, right Dyslipidemia Hypovitaminosis D Essential hypertension Surgical History History of arthroscopy of right knee History of arthroscopy of left knee History of hand surgery History of colonoscopy Family History Father Hypertension Diabetes CVD (cardiovascular disease) Mother Hypertension Thyroid disease Uterine cancer Breast cancer Ovarian cancer Bladder cancer Maternal Aunt Breast cancer Sister Alive and well Social History Housing: Condominium Alcohol intake: current Alcohol intake frequency: a few times a month Alcohol type: beer Patient Tobacco Use Status: Former Tobacco user Tobacco use type: Cigarette Years Smoked: 20 e-Cigarette/Vaping Use: Never Used Second Hand Smoke Exposure: No Advance Directives Date on File: 07/10/20 service: No Current occupational status: employed 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 1. Little interest or pleasure in doing things: not at all 2. Feeling down, depressed, or hopeless: not at all 3. Trouble falling or staying asleep, or sleeping too much: not at all 4. Feeling tired or having little energy: not at all 5. Poor appetite or overeating: not at all 6. Feeling bad about yourself - or that you are a failure or have let yourself or your family down: not at all 7. Trouble concentrating on things, such as reading the newspaper or watching television: not at all 8. Moving or speaking so slowly that other people could have noticed. Or the opposite - being so fidgety or restless that you have been moving around a lot more than usual: not at all 9. Thoughts that you would be better off or of hurting yourself in some way: not at all Total score: 0 Depression Screening Interpretation: Negative Depression Screening Done: Yes 35105 - PHQ-9 Billing: Yes Source: Developed by Drs. Blayne Taylor, Aure Jaimes, Daniel Goodman and colleagues, with an educational luis miguel from [employer] [facility]. Thrive Questionnaire Date Thrive assessed: 01/01/25 I am a: Patient What is your living situation today?: I have a steady place to live Within the past 12 months, did the food you bought not last and you didn't have the money to get more?: I choose not to answer this question Within the past 12 months, did you worry whether your food would run out before you got money to buy more?: I choose not to answer this question Do you have trouble paying for medicines?: No Do you have trouble getting transportation to medical appointments?: No Do you have trouble paying your heating and electricity bill?: No Do you have trouble taking care of your child, family member or friend?: No Do you have trouble with day-to-day activities such as bathing, preparing meals, shopping, managing finances, etc.?: No Are you currently unemployed and looking for a job?: No Are you interested in more education?: No Please select the resources that you would like help with: None Currently or been in a relationship where the following occur: I choose not to answer THRIVE Score: 0 AUDIT C Alcohol Use Questionnaire (AUDIT-C) 1. How often do you have a drink containing alcohol?: 2-3 times a week 2. How many drinks containing alcohol do you have on a typical day when you are drinking?: 1 or 2 3. How often do you have six or more drinks on one occasion?: Never Total Score: 3 Score Reviewed/Action Taken: No SRIDHAR-7 AMB Questionnaire SRIDHAR-7 Date SRIDHAR - 7 assessed: 01/08/25 Feeling nervous, anxious, or on edge: 0 = Not at all Not being able to stop or control worryin = Not at all Worrying too much about different things: 0 = Not at all Trouble relaxin = Not at all Being so restless that it is hard to sit still: 0 = Not at all Becoming easily annoyed or irritable: 0 = Not at all Feeling afraid as if something awful might happen: 0 = Not at all Total SRIDHAR-7 score (0-4 normal; 5-9 mild; 10-14 moderate; 15-21 severe): 0 Source: Developed by Drs. Blayne Taylor, Aure Jaimes, Daniel Goodman and colleagues, with an educational luis miguel from [facility] [facility]. SRIDHAR-7 Assessment Billing SRIDHAR-7 Assessment Tool: SRIDHAR-7 Assessment 16759 Review of Systems Const All systems reviewed & are unremarkable except as noted in HPI and below Card Denies chest pain at rest, Denies chest pain with activity, Denies edema, Denies irregular heart rhythm, Denies claudication, Denies dyspnea, Denies dyspnea on exertion, Denies orthopnea, Denies paroxysmal nocturnal dyspnea and Denies slow heart rate Resp Denies cough, Denies dyspnea and Denies dyspnea on exertion GI Denies abdominal pain, Denies change in bowel habits, Denies excessive flatus, Denies nausea and Denies vomiting Denies urinary incontinence, Denies urinary hesitancy and Denies urinary urgency Musc Denies atrophy, Denies deformity and Denies limited range of motion Skin/Breast Denies bleeding lesions, Denies changing lesions and Denies rash Physical exam (Primary Care) Vital Signs: Last Vital Signs BP 132/86 01/08/25 07:34 BMI result Body Mass Index 30.2 Tobacco/Smoking Status: Tobacco use Status Tobacco use date assessed 01/08/25 01/08/25 07:41 Patient Tobacco Use Status Former Tobacco user 01/08/25 07:41 Tobacco use type Cigarette 01/08/25 07:41 e-Cigarette/Vaping Use Never Used 01/08/25 07:41 PHQ-9: PHQ-9 Score PHQ-9: Total score 0 01/08/25 08:46 Depression Screening Interpretation: Negative Thrive Assessment: Date of Thrive Assessment Date Thrive assessed 01/01/25 01/08/25 07:41 Currently or been in a relationship where the following occur: I choose not to answer HENMT Head: Yes normal to inspection, Yes normocephalic and Yes atraumatic Ears: external ears normal Eyes General: appearance normal, both eyes and all related structures Eyelids: Yes eyelids normal Conjunctivae: conjunctivae normal Neck Neck: Yes normal visual inspection and Yes supple Resp Effort & Inspection: normal respiratory effort Auscultation: clear to auscultation bilaterally Cardio Jugular venous distension: no JVD Rate: regular rate Rhythm: regular rhythm Heart sounds: S1 normal heart sound present and S2 normal heart sound present GI Inspection: Yes normal to inspection Palpation (GI): Soft to palpation and nontender Auscultation: normal bowel sounds Skin General skin exam: no rashes or lesions noted Neuro General: no focal motor deficits Extrem General: Yes full ROM Psych Appearance: grossly normal Coding Level of Care Code Est Pt Prev Care >65y(45097) Diagnoses Physical exam Z00.00 Additional Codes SRIDHAR-7 Assessment Billing - SRIDHAR-7 Assessment Tool: SRIDHAR-7 Assessment 75835 ([id number]) PHQ-9 - 95308 - PHQ-9 Billing: Yes ([id number]) Time Spent (min) 30 Assessment & Plan Assessment & Plan (1) Physical exam: Code(s): Z00.00 - Encounter for general adult medical examination without abnormal findings Category: Medical Plan The plan involves administering the pneumonia vaccine for optimal preventive health care. Follow-up imaging is scheduled to monitor right breast findings, while the left breast will be evaluated for the annual exam. No further Pap smears are necessary due to the patient's age. Reevaluate fasting blood glucose in six months following lifestyle modifications. Adjust rosuvastatin dosage for enhanced tolerance and sustained cholesterol management, keeping the adjusted hydrochlorothiazide and lisinopril regimen intact for blood pressure control. The current approach to osteoarthritic knee pain is effective; hence continued usage of ibuprofen is sanctioned. Heightened physical activity is encouraged with the aid of healthcare-sponsored gym access. The patient is advised to persist with gel-based vitamin D supplementation due to personal preference. Patient was informed and verbally consented to the use of an ambient scribe for clinic note documentation during this visit. I explained the importance of the pneumonia vaccine given its preventive capacity for individuals over 65. We discussed the findings from the recent mammogram. I detailed the recommended follow-up intervals and importance, particularly for the right breast presentation. The patient understood that no further Pap smears are required, relying on the cessation guidelines after 65. I reviewed blood glucose readings, proposing lifestyle adjustments and regular monitoring to forestall diabetes progression. The patient will maintain a reduced rosuvastatin dose to alleviate musculoskeletal symptoms, monitoring cholesterol closely. I acknowledged her antihypertensive therapy's efficacy. For her knee symptoms, ibuprofen remains suitable, and the patient was encouraged to maintain her [employer] gym routine; her enthusiasm for this initiative indicates positive health engagement. We discussed the convenience of gel vitamin D, approving its continued use. Consent for all current and future interventions was obtained. Orders: Orders Pneumococcal 23 Immunization Today Z23 - Encounter for immunization Lipid Panel 6 Months E78.5 - Hyperlipidemia, unspecified Vitamin D 25-OH Total 6 Months E55.9 - Vitamin D deficiency, unspecified Comprehensive [place]. Panel Fast 6 Months R73.02 - Impaired glucose tolerance (oral) Medications: New Pneumovax-23 (pneumococcal 23-margie ps vaccine) 0.5 mL IM ONCE 0.5 mL 0RF NS Z23 - Encounter for immunization rosuvastatin 5 mg PO DAILY 90 tabs 1RF 90 days Discontinued rosuvastatin Discontinued Reason: Patient Completed Course 10 mg PO DAILY 90 days 90 tabs 2RF Patient Instructions: - Obtain pneumonia vaccine today. - Attend mammogram follow-up and annual evaluations as scheduled. - Maintain reduced rosuvastatin dosage and monitor effects. - Continue antihypertensive regimen with hydrochlorothiazide and lisinopril. - Recheck blood glucose in six months. - Engage in regular physical activity and gym sessions. - Use ibuprofen for knee pain as required. - Continue gel vitamin D supplements.
[2025-01-08 07:34] VITALS: BP 132/86; BMI 30.2
== END 2025-01-08 08:12 | disposition home or self-care (01) ==
LOC: HO.HMCH 07:22
PROVIDERS: PCP Internal Medicine; Visit Provider Internal Medicine
DX: Z23 Encounter for immunization (principal); Z00.00 Encounter for general adult medical examination without abnormal findings

== ENCOUNTER 2025-01-08 13:52 | Outpatient (REF) | payer MEDICARE, SELFPAY ==
--- NOTE | ~2025-01-08 | MM_ITS ---
EXAMINATION: MM DIAGNOSTIC DIGITAL BREAST TOMOSYNTHESIS, BILATERAL CLINICAL INFORMATION: 12 month follow-up for calcifications in the upper inner right breast. COMPARISON: Mammography: Comparison is made with relevant prior exams. TECHNIQUE: Digital breast mammography with tomosynthesis is performed in both the craniocaudal and mediolateral oblique views along with computer-aided detection (CAD). FINDINGS: The breasts are heterogeneously dense, which may obscure small masses (ACR BI-RADS breast composition Category c). Previously seen calcifications in the upper inner right breast have coalesced into one dystrophic calcification on magnification views and is benign. There are no significant masses, abnormal calcifications, or other abnormalities. Results are provided to the patient at time of visit by the technologist. MM/MM tomosynthesis diagnostic BI IMPRESSION: No mammographic evidence of malignancy. ASSESSMENT: BI-RADS BI-RADS 2 - Benign Findings RECOMMENDATION: 1 year F/U This patient's information was entered into a reminder system with a target due date for their next mammogram. Electronically signed by: Gisele Bernal DO 01/08/2025 02:54 PM EDT
== END 2025-01-08 13:53 | disposition home or self-care (01) ==
LOC: HO.MAMMO 13:52
PROVIDERS: PCP Internal Medicine; Visit Provider Internal Medicine
DX: Z00.00 Encounter for general adult medical examination without abnormal findings (principal); Z23 Encounter for immunization; R92.1 Mammographic calcification found on diagnostic imaging of breast
CPT/HCPCS: 77062; 77066; 90471; 90732; 96127; 99397

== ENCOUNTER → 2025-01-08 14:00 | Outpatient (BNV) | payer MEDICARE, SELFPAY | PROVIDERS: PCP Internal Medicine; Visit Provider Internal Medicine | DX: R92.1 Mammographic calcification found on diagnostic imaging of breast (principal) | CPT/HCPCS: 77066; G0279 ==

== ENCOUNTER 2025-04-01 14:26 | Outpatient (AMB) | payer OTHER, SELFPAY ==
[2025-04-01 14:29] VITALS: BMI 30.2
--- NOTE | 2025-04-01 14:29 | A.OFFVIS_ITS ---
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 States she is having pain in her thumb with grabbing, pinching and when doing her hair. At times her thumb locks and is very painful. Patient reports this started in February 2025 and has progressively worsen. Denies any injury, numbness, tingling. 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 States she is having pain in her thumb with grabbing, pinching and when doing her hair. At times her thumb locks and is very painful. Patient reports this started in February 2025 and has progressively worsen. Denies any injury, numbness, tingling. Pain at the volar base of the right thumb whenever it is pushed. [facility] Medical History Jake-Schlatter's disease Overweight (BMI 25.0-29.9) Physical exam Plantar fasciitis, right Dyslipidemia Hypovitaminosis D Essential hypertension Surgical History History of arthroscopy of right knee History of arthroscopy of left knee History of hand surgery History of colonoscopy Family History Father Hypertension Diabetes CVD (cardiovascular disease) Mother Hypertension Thyroid disease Uterine cancer Breast cancer Ovarian cancer Bladder cancer Maternal Aunt Breast cancer Sister Alive and well Social History Housing: Condominium Alcohol intake: current Alcohol intake frequency: a few times a month Alcohol type: beer Patient Tobacco Use Status: Former Tobacco user Tobacco use type: Cigarette Years Smoked: 20 e-Cigarette/Vaping Use: Never Used Second Hand Smoke Exposure: No Advance Directives Date on File: 07/10/20 service: No Current occupational status: employed 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 Neuro: Normal sensation of the tips of all digits of the right hand at this time Vascular: Cap refill brisk Pain: Tenderness to palpation of the A1 darshan of right thumb Pain with locking and catching of right thumb ROM: There is visible and palpable locking and catching of the right thumb Skin: No lacerations or abrasions. General: No ecchymosis, erythema, or evidence of infection. Psych: Appears grossly normal Affect normal Attitude cooperative Assessment & Plan Assessment & Plan (1) Trigger thumb, right thumb: Code(s): M65.311 - Trigger thumb, right thumb Category: Medical Plan 1. Trigger thumb, right thumb I educated the patient about the condition. I discussed both operative and nonoperative treatment options. The patient would like to proceed with surgery. The risks and benefits of operative treatment were discussed with the patient and the patient wishes to proceed with surgery. These risks include, but are not limited to, risk of damage to blood vessels, nerves, tendons, infection, recurrence, incomplete relief of preoperative symptoms, persistent pain, possible need for further surgery, and the risks associated with regional blocks and/or anesthesia. Plan is to take the patient to the operating room at some point in the next few weeks for the following procedures: 1. Right trigger thumb release under local All of the preoperative paperwork including the consent was discussed today. All of the patient's questions were answered in the clinic today. The patient understands that they will be in contact with our human resources supervisor to discuss scheduling their procedure. Patient denies diabetes, blood thinners, asthma, heart issues, lung issues, kidney issues, or current smoking. Coding Level of Care Code Est Pt Level 4 (48966) Diagnoses Trigger thumb, right thumb M65.311
--- OUTSIDE RECORDS SUMMARY | 2025-04-01 17:37 | XMS_ITS | Patient Health Record ---
Author Organization [facility] Address [address] [place] [address] Care Team Providers Care Director Occupational Name Role Phone Kathy Silva Primary Care Provider Blayne Thompson Unavailable [phone] Allergies Allergen (clinical drug ingredient) Drug/Non Drug [...] Problem Status W/U Status Risk Notes Problem 946091535 Colon cancer screening (Z12.11) Active confirmed Problem 724474411 Encounter for screening for malignant neoplasm of colon (Z12.11) Active confirmed Problem 683672647 History of adenomatous polyp of colon (Z86.010) Active confirmed Problem History of polyp of colon (situation) (459238173) Personal history of colonic polyps (Z86.010) Active confirmed Problem Screening for malignant neoplasm of rectum (642981997) Encounter for screening for malignant neoplasm of rectum (Z12.12) Active confirmed Problem 13764881 Preprocedural examination (Z01.818) Active confirmed Problem 307993506710483 Pre-procedural examination (Z01.818) Active confirmed Problem Diverticulosis of colon (472344239) Diverticulosis of colon (K57.30) Active confirmed Plan Of Treatment Future Test Test Name Order Date COLONOSCOPY 10/13/2015 COLONOSCOPY 02/14/2023 Insurance Providers Payer Name Payer Address Payer Phone Subscriber Number Group Number Insured Name Patient Relationship to Insured Coverage Start Date Coverage End Date [facility] [address] [place] [address] [phone] [id number] GUILLAUME Self - patient is the insured Medical (General) History Medical History History ICD Code Hypertension Denies NE,DM,CVA,Lung disease,renal dise ase Colonoscopy 12/2015 with a small tubular adenoma Surgical History Surgery Date(Month/Year) knee surgery
== END 2025-04-01 14:59 | disposition home or self-care (01) ==
PROVIDERS: PCP Internal Medicine
DX: M65.311 Trigger thumb, right thumb (principal)
CPT/HCPCS: 99204

== ENCOUNTER → 2025-04-01 14:26 | Outpatient (BNVA) | payer MEDICARE, SELFPAY | PROVIDERS: PCP Internal Medicine | DX: Z13.89 Encounter for screening for other disorder (principal) ==

== ENCOUNTER 2025-04-21 08:16 | Day surgery (SDC) | payer MEDICARE, SELFPAY ==
[2025-04-21 09:42] VITALS: BMI 31.6
--- NOTE | 2025-04-21 10:06 | P.OP_ITS ---
Operative Note Operative Note Date of Service: 04/21/25 Narrative: Operative Note Preop diagnosis: 1. Right trigger thumb Postop diagnosis: Same Procedure: 1. Right thumb A1 darshan release Surgeon: Gina Serrano MD International Logistics Analyst: José Luis DRAPER Anesthesia: local block using 1% lidocaine with epinephrine Findings: No locking or catching after A1 darshan release EBL: Less than 5 mL Tourniquet time: None Specimens: None Complications: None Disposition: Brought to recovery room in stable condition Plan: Follow-up for 10-14 days for wound check and suture removal Indications: The patient is 64 years old, with a right trigger thumb that has been unresponsive to nonoperative management. The risks and benefits of operative treatment including but not limited to risk of damage to blood vessels, nerves, tendons, infection, persistent pain, persistent symptoms, recurrence or possible need for additional surgery were discussed with the patient and the patient wishes to proceed with surgery. Procedure: Once consent was obtained a local block was performed in the preop area using a combination of 1% lidocaine with epinephrine. The patient was then brought back to the operating suite and placed on the operative table in supine position. The right upper extremity was prepped and draped in a standard surgical fashion. Once assured that we had a good block, a 1.5 cm oblique incision was made centered over the A1 darshan of the right thumb . The incision was made through the skin to the subcutaneous tissues using a #15 blade. Careful dissection was made down to the level of the A1 darshan using tenotomy scissors, with care being taken to protect the nearby neurovascular structures. A longitudinal incision was made in the A1 darshan 1st using a #15 blade, then using tenotomy scissors under direct visualization. The A1 darshan was noted to be thickened. Following our A1 darshan release, we no longer saw any locking or catching of the digit with flexion and extension. Once satisfied with our A1 darshan release the wound was copiously irrigated with normal saline and hemostasis was obtained with a brief period of local pressure. The skin edges were reapproximated with some 5.0 nylon suture material and a sterile dressing was applied. The patient appears to have tolerated the procedure well and with no complications. All digits were well vascularized at the conclusion of the case.
--- NOTE | 2025-04-21 10:06 | MHC.SHP ---
Pre-Procedural Eval Section A - 24 Hr Update-Section A only Date of Service: 04/21/25 The patient is an INPATIENT: No Changes since office visit: No Cold of Flu in the past 2 weeks, No New Medical Problems, No Changes in Medication and No Patient answered all questions The patient has been examined within 24 hours of the surgical procedure. The History & Physical has been completed within 30 days and I have reviewed it.: Yes Section B - Complete if H&P > 30 days Chief Complaint: Trigger thumb, right thumb Allergies: Allergies Allergy/AdvReac Type Severity Reaction Status Date / Time cefazolin Allergy Intermediate hives Verified 04/01/25 14:33 sulfacetamide Allergy Unknown Verified 04/01/25 14:33 Plan Diagnosis/Plan: Unchanged I have reviewed the history and physical and performed a pertinent physical examination on my patient. No changes have occurred unless specified. Time Spent With Patient Time: Total time managing care of this patient today ____ minutes.
[2025-04-21 11:31] VITALS: BP 130/70; PULSE 74; RESP 16; O2SAT 95
== END 2025-04-21 11:40 | disposition home or self-care (01) ==
PROVIDERS: PCP Internal Medicine; Visit Provider Orthopaedic Surgery
PROC: (CPT 26055; principal; 2025-04-21 12:50)
DX: M65.311 Trigger thumb, right thumb (principal); M79.644 Pain in right finger(s); M92.529 Juvenile osteochondrosis of tibia tubercle, unspecified leg; M72.2 Plantar fascial fibromatosis; I10 Essential (primary) hypertension; E78.5 Hyperlipidemia, unspecified; E55.9 Vitamin D deficiency, unspecified; E66.3 Overweight; Z68.30 Body mass index [BMI] 30.0-30.9, adult; Z88.1 Allergy status to other antibiotic agents; Z88.2 Allergy status to sulfonamides
CPT/HCPCS: 26055; J0165; J2003

== ENCOUNTER → 2025-04-21 08:16 | Outpatient (BNV) | payer MEDICARE, SELFPAY | PROVIDERS: PCP Internal Medicine; Visit Provider Orthopaedic Surgery | DX: M65.311 Trigger thumb, right thumb (principal) | CPT/HCPCS: 26055 ==

== ENCOUNTER 2025-05-06 10:49 | Outpatient (AMB) | payer OTHER, SELFPAY ==
--- NOTE | 2025-05-06 10:53 | A.OFFVIS_ITS ---
Vital Signs 05/06/25 10:57 Height 5 ft 1 in Weight 160 lb BMI 30.2 Handedness Right Intake Visit Reasons: PO RT thumb trigger 04/21/25 AR Intake Note: Melissa is a 64 year old right hand dominant female who presents today for a post operative visit status post right thumb A1 darshan release, DOS: 04/21/[address] Gina Serrano. Patient reports she is no longer having the pain she had before the surgical procedure. She expresses stiffness when she attempts to bend her right thumb. Denies pain and tingling. Some mild numbness on finger tip of her right thumb. She has mild swelling and redness at the base of her right thumb. Sutures removed and steri strips applied today. Pain with palpation when applying steri strips. Allergies cefazolin Allergy (Intermediate, Verified 05/06/25 10:57) hives sulfacetamide Allergy (Verified 05/06/25 10:57) Unknown HPI HPI PO RT thumb trigger 04/21/25 AR: Details: Melissa is a 64 year old right hand dominant female who presents today for a post operative visit status post right thumb A1 darshan release, DOS: 04/21/[address] Gina Serrano. Patient reports she is no longer having the pain she had before the surgical procedure. She expresses stiffness when she attempts to bend her right thumb. Denies pain and tingling. Some mild numbness on finger tip of her right thumb. She has mild swelling and redness at the base of her right thumb. Sutures removed and steri strips applied today. Pain with palpation when applying steri strips. [facility] Medical History Brodhead-Schlatter's disease Overweight (BMI 25.0-29.9) Physical exam Plantar fasciitis, right Dyslipidemia Hypovitaminosis D Essential hypertension Surgical History History of arthroscopy of right knee History of arthroscopy of left knee History of hand surgery History of colonoscopy Family History Father Hypertension Diabetes CVD (cardiovascular disease) Mother Hypertension Thyroid disease Uterine cancer Breast cancer Ovarian cancer Bladder cancer Maternal Aunt Breast cancer Sister Alive and well Social History Housing: Condominium Alcohol intake: current Alcohol intake frequency: a few times a month Alcohol type: beer Patient Tobacco Use Status: Former Tobacco user Tobacco use type: Cigarette Years Smoked: 20 e-Cigarette/Vaping Use: Never Used Second Hand Smoke Exposure: No Advance Directives Date on File: 07/10/20 service: No Current occupational status: employed 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 Neuro: Normal sensation of the tips of all digits of the right hand at this time Vascular: Cap refill brisk Pain: No Tenderness to palpation of the A1 darshan of right thumb Pain with locking and catching of right thumb ROM: There is no further visible and palpable locking and catching of the right thumb Skin: Well approximated and well healing incision site noted over the A1 darshan of the right thumb No lacerations or abrasions. General: No ecchymosis, erythema, or evidence of infection. Psych: Appears grossly normal Affect normal Attitude cooperative Assessment & Plan Assessment & Plan (1) Trigger thumb, right thumb: Code(s): M65.311 - Trigger thumb, right thumb Category: Medical Plan 1. Status post right trigger thumb release DOS 04/21/2025 Patient appears to be recovering well postoperatively Patient is educated about the typical recovery course At this time, no acute follow-up as indicated, as patient appears to be recovering quite well Patient understands this and is amenable to this plan Follow-up as needed Coding Level of Care Code Global (29758) Diagnoses Trigger thumb, right thumb M65.311
[2025-05-06 10:57] VITALS: BMI 30.2
--- OUTSIDE RECORDS SUMMARY | 2025-05-06 12:00 | XMS_ITS | Patient Health Record ---
Author Organization [facility] Address [address] [place] [address] Care Team Providers Care Firestop/Containment Worker Name Role Phone Kathy Silva Primary Care Provider Blayne Thompson Unavailable [phone] Allergies Allergen (clinical drug ingredient) Drug/Non Drug [...] Problem Status W/U Status Risk Notes Problem 632188541 Colon cancer screening (Z12.11) Active confirmed Problem 692480081 Encounter for screening for malignant neoplasm of colon (Z12.11) Active confirmed Problem 539295998 History of adenomatous polyp of colon (Z86.010) Active confirmed Problem Personal history of colonic polyps (Z86.010) Active confirmed Problem Screening for malignant neoplasm of rectum (810951325) Encounter for screening for malignant neoplasm of rectum (Z12.12) Active confirmed Problem 49640941 Preprocedural examination (Z01.818) Active confirmed Problem 820120037667119 Pre-procedural examination (Z01.818) Active confirmed Problem Diverticulosis of colon (805697738) Diverticulosis of colon (K57.30) Active confirmed Plan Of Treatment Future Test Test Name Order Date COLONOSCOPY 10/13/2015 COLONOSCOPY 02/14/2023 Insurance Providers Payer Name Payer Address Payer Phone Subscriber Number Group Number Insured Name Patient Relationship to Insured Coverage Start Date Coverage End Date [facility] [address] [place] [address] [id number] [address]ME Self - patient is the insured Medical (General) History Medical History History ICD Code Hypertension Denies [place],DM,CVA,Lung disease,renal dise ase Colonoscopy 12/2015 with a small tubular adenoma Surgical History Surgery Date(Month/Year) knee surgery
== END 2025-05-06 11:22 | disposition home or self-care (01) ==
LOC: HO.HOS 10:50
PROVIDERS: PCP Internal Medicine
DX: M65.311 Trigger thumb, right thumb (principal)
CPT/HCPCS: 99024

== ENCOUNTER 2025-07-07 06:06 | Outpatient (REF) | payer MEDICARE, SELFPAY ==
--- OUTSIDE RECORDS SUMMARY | 2025-07-07 06:10 | XMS_ITS | Patient Health Record ---
Author Organization [facility] Address [address] [place] [address] Care Team Providers Care Operations Section Manager Name Role Phone Kathy Silva Primary Care Provider Blayne Thompson Unavailable [phone] Allergies Allergen (clinical drug ingredient) Drug/Non Drug [...] Problem Status W/U Status Risk Notes Problem 631313286 Colon cancer screening (Z12.11) Active confirmed Problem 621676358 Encounter for screening for malignant neoplasm of colon (Z12.11) Active confirmed Problem 374189279 History of adenomatous polyp of colon (Z86.010) Active confirmed Problem History of polyp of colon (situation) (664086798) Personal history of colonic polyps (Z86.010) Active confirmed Problem Screening for malignant neoplasm of rectum (106702847) Encounter for screening for malignant neoplasm of rectum (Z12.12) Active confirmed Problem 22690437 Preprocedural examination (Z01.818) Active confirmed Problem 859874619348954 Pre-procedural examination (Z01.818) Active confirmed Problem Diverticulosis of colon (612412942) Diverticulosis of colon (K57.30) Active confirmed Plan Of Treatment Future Test Test Name Order Date COLONOSCOPY 10/13/2015 COLONOSCOPY 02/14/2023 Insurance Providers Payer Name Payer Address Payer Phone Subscriber Number Group Number Insured Name Patient Relationship to Insured Coverage Start Date Coverage End Date [facility] [address] [place] [address] [id number] [address] GUILLAUME Self - patient is the insured Medical (General) History Medical History History ICD Code Hypertension Denies [place],DM,CVA,Lung disease,renal dise ase Colonoscopy 12/2015 with a small tubular adenoma Surgical History Surgery Date(Month/Year) knee surgery
[2025-07-07 07:52] LABS: Alanine Aminotransferase 29 U/L (0-31); Albumin Level 4.6 g/dL (3.5-5.0); Alkaline Phosphatase 63 U/L (39-117); Anion Gap 12 (12-20); Aspartate Amino Transferase 32 U/L (5-31); Blood Urea Nitrogen 18 mg/dL (9-16); Calcium 9.4 mg/dL (8.4-10.2); Carbon Dioxide 24 mmol/L (22-29); Chloride 106 mmol/L (96-108); Cholesterol 165 mg/dL (<200); Estimated Glomerular Filt Rate > 60; HDL Cholesterol 58 mg/dL (>40); Potassium 3.6 mmol/L (3.3-5.1); Sodium 138 mmol/L (135-145); Total Protein 7.8 g/dL (6.5-8.0); Triglycerides 113 mg/dL (<150)
== END 2025-07-07 06:07 | disposition home or self-care (01) ==
LOC: HO.LAB 06:06
PROVIDERS: PCP Internal Medicine; Visit Provider Internal Medicine
DX: R73.02 Impaired glucose tolerance (oral) (principal); E55.9 Vitamin D deficiency, unspecified; E78.5 Hyperlipidemia, unspecified
CPT/HCPCS: 36415; 80053; 80061; 82306

== ENCOUNTER 2025-07-14 07:22 | Outpatient (AMB) | payer MEDICARE, SELFPAY ==
--- OUTSIDE RECORDS SUMMARY | 2025-07-14 07:26 | XMS_ITS | Patient Health Record ---
Author Organization [facility] Address [address] [place] [address] Care Team Providers Care Evaluator Transfer Students Name Role Phone Kathy Silva Primary Care Provider Blayne Thompson Unavailable [phone] Allergies Allergen (clinical drug ingredient) Drug/Non Drug [...] Problem Status W/U Status Risk Notes Problem 073918224 Colon cancer screening (Z12.11) Active confirmed Problem 761296800 Encounter for screening for malignant neoplasm of colon (Z12.11) Active confirmed Problem 861634295 History of adenomatous polyp of colon (Z86.010) Active confirmed Problem History of polyp of colon (situation) (413510501) Personal history of colonic polyps (Z86.010) Active confirmed Problem Screening for malignant neoplasm of rectum (531622929) Encounter for screening for malignant neoplasm of rectum (Z12.12) Active confirmed Problem 40407566 Preprocedural examination (Z01.818) Active confirmed Problem 957596160112958 Pre-procedural examination (Z01.818) Active confirmed Problem Diverticulosis of colon (544266310) Diverticulosis of colon (K57.30) Active confirmed Plan Of Treatment Future Test Test Name Order Date COLONOSCOPY 10/13/2015 COLONOSCOPY 02/14/2023 Insurance Providers Payer Name Payer Address Payer Phone Subscriber Number Group Number Insured Name Patient Relationship to Insured Coverage Start Date Coverage End Date [facility] [address] [place] [address] [id number] [address] GUILLAUME Self - patient is the insured Medical (General) History Medical History History ICD Code Hypertension Denies [place],DM,CVA,Lung disease,renal dise ase Colonoscopy 12/2015 with a small tubular adenoma Surgical History Surgery Date(Month/Year) knee surgery
[2025-07-14 07:46] VITALS: BP 136/62; PULSE 72; O2SAT 98; BMI 31.0
--- NOTE | 2025-07-14 07:46 | MHC.PC.OV ---
Vital Signs 07/14/25 07:46 Height 5 ft 1 in Weight 164 lb BMI 31.0 BP 136/62 Blood Pressure Location Lt brachial Position Sitting Pulse 72 Pulse Source Pulse Oximeter Pulse Oximetry (%) 98 Oxygen Delivery Method Room Air Intake Visit Reasons: 6M follow up Etiologist Required: No Accompanied by: Self / Same As Patient Allergies cefazolin Allergy (Intermediate, Verified 07/14/25 07:53) hives sulfacetamide Allergy (Verified 07/14/25 07:53) Unknown Medication List - Last Reconciled 07/14/25 by Kathy Hagen MD cholecalciferol (vitamin D3) 25 mcg PO DAILY hydrochlorothiazide 25 mg PO DAILY 90 days ibuprofen 800 mg PO TID PRN lisinopril 10 mg PO DAILY rosuvastatin 5 mg PO DAILY 90 days Tobacco use date assessed: 01/08/25 Fall risk assessment: No Falls in past year Last assessed Fall Risk: 07/14/25 Dental Screening Dental Screen Date: 01/08/25 HPI HPI Comments History of Present Illness Details The patient is a 65-year-old female presenting for follow-up on recent blood work and management of chronic conditions. The patient has a history of prediabetes, identified with a fasting blood glucose level of 109 mg/dL, indicating impaired glucose tolerance. She is aware of her condition and is advised to manage it through lifestyle modifications, including dietary changes to avoid high sugar intake. The patient has osteoarthritis of the knee, for which she uses ibuprofen as needed for pain management. She attempted running but experienced discomfort, leading her to continue with walking and upper body exercises instead. Hypertension is managed with hydrochlorothiazide 25 mg and lisinopril 10 mg, with blood pressure reported as excellent during the visit. Hyperlipidemia is controlled with rosuvastatin 5 mg every other day, resulting in excellent cholesterol levels. The patient has a history of vitamin D deficiency, managed with supplementation every other day, maintaining normal levels. Preventative care measures include being up-to-date with vaccinations, including the pneumonia vaccine received last year, and routine screenings such as bone density and mammograms. [facility] Medical History Jake-Schlatter's disease Overweight (BMI 25.0-29.9) Physical exam Plantar fasciitis, right Dyslipidemia Hypovitaminosis D Essential hypertension Surgical History History of arthroscopy of right knee History of arthroscopy of left knee History of hand surgery History of colonoscopy Family History Father Hypertension Diabetes CVD (cardiovascular disease) Mother Hypertension Thyroid disease Uterine cancer Breast cancer Ovarian cancer Bladder cancer Maternal Aunt Breast cancer Sister Alive and well Social History Housing: Condominium Alcohol intake: current Alcohol intake frequency: a few times a month Alcohol type: beer Patient Tobacco Use Status: Former Tobacco user Tobacco use type: Cigarette Years Smoked: 20 e-Cigarette/Vaping Use: Never Used Second Hand Smoke Exposure: No Advance Directives Date on File: 07/10/20 service: No Current occupational status: employed 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 Current occupational exposures/hazards: No Sexual orientation: Straight/Heterosexual Gender identity: Female Cognitive needs: No Hearing needs: No Vision needs: Yes Questionnaire Thrive Questionnaire Date Thrive assessed: 01/01/25 I am a: Patient What is your living situation today?: I have a steady place to live Within the past 12 months, did the food you bought not last and you didn't have the money to get more?: I choose not to answer this question Within the past 12 months, did you worry whether your food would run out before you got money to buy more?: I choose not to answer this question Do you have trouble paying for medicines?: No Do you have trouble getting transportation to medical appointments?: No Do you have trouble paying your heating and electricity bill?: No Do you have trouble taking care of your child, family member or friend?: No Do you have trouble with day-to-day activities such as bathing, preparing meals, shopping, managing finances, etc.?: No Are you currently unemployed and looking for a job?: No Are you interested in more education?: No Please select the resources that you would like help with: None Currently or been in a relationship where the following occur: I choose not to answer THRIVE Score: 0 SRIDHAR-7 AMB Questionnaire SRIDHAR-7 Date SRIDHAR - 7 assessed: 01/08/25 Source: Developed by Drs. Blayne Taylor, Aure Jaimes, Daniel Goodman and colleagues, with an educational luis miguel from [employer]. Review of Systems Const All systems reviewed & are unremarkable except as noted in HPI and below Card Denies chest pain at rest, Denies chest pain with activity, Denies edema, Denies irregular heart rhythm, Denies claudication, Denies dyspnea, Denies dyspnea on exertion, Denies orthopnea, Denies paroxysmal nocturnal dyspnea and Denies slow heart rate Resp Denies cough, Denies dyspnea and Denies dyspnea on exertion GI Denies abdominal pain, Denies change in bowel habits, Denies excessive flatus, Denies nausea and Denies vomiting Denies urinary incontinence, Denies urinary hesitancy and Denies urinary urgency Musc Denies abnormal gait, Denies atrophy, Denies deformity and Denies limited range of motion Skin/Breast Denies bleeding lesions, Denies changing lesions and Denies rash Neuro Denies abnormal gait and Denies lack of coordination Physical exam (Primary Care) Vital Signs: Last Vital Signs Pulse 72 07/14/25 07:46 BP 136/62 07/14/25 07:46 Pulse Ox 98 07/14/25 07:46 Oxygen Delivery Method Room Air 07/14/25 07:46 BMI result Body Mass Index 31.0 Tobacco/Smoking Status: Tobacco use Status Tobacco use date assessed 01/08/25 07/14/25 07:50 Patient Tobacco Use Status Former Tobacco user 07/14/25 07:50 Tobacco use type Cigarette 07/14/25 07:50 e-Cigarette/Vaping Use Never Used 07/14/25 07:50 Thrive Assessment: Date of Thrive Assessment Date Thrive assessed 01/01/25 07/14/25 07:50 Currently or been in a relationship where the following occur: I choose not to answer Resp Effort & Inspection: normal respiratory effort Auscultation: clear to auscultation bilaterally Cardio Jugular venous distension: no JVD Rate: regular rate Rhythm: regular rhythm Heart sounds: S1 normal heart sound present and S2 normal heart sound present Extrem General: Yes full ROM Coding Level of Care Code Est Pt Level 4 (57134) Diagnoses Essential hypertension I10 Dyslipidemia E78.5 Hypovitaminosis D E55.9 Impaired glucose tolerance R73.02 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 Time Spent (min) 23 Assessment & Plan Assessment & Plan (1) Essential hypertension: Code(s): I10 - Essential (primary) hypertension Category: Medical (2) Dyslipidemia: Code(s): E78.5 - Hyperlipidemia, unspecified Category: Medical (3) Hypovitaminosis D: Code(s): E55.9 - Vitamin D deficiency, unspecified Category: Medical (4) Impaired glucose tolerance: Code(s): R73.02 - Impaired glucose tolerance (oral) Category: Medical (5) Chondromalacia patellae of right knee: Code(s): M22.41 - Chondromalacia patellae, right knee Category: Medical Plan Plan Patient was informed and verbally consented to the use of an ambient scribe for clinic note documentation during this visit. 1. Impaired glucose tolerance (oral) R73.02 The patient is advised to manage prediabetes through lifestyle modifications, including dietary changes to reduce sugar intake and regular exercise. Follow-up blood work is planned in six months to monitor glucose levels. 2. Bilateral primary osteoarthritis of knee M17.0 The patient manages knee osteoarthritis with ibuprofen as needed for pain relief. She is encouraged to continue walking and upper body exercises, avoiding activities that exacerbate knee pain. 3. Essential (primary) hypertension I10 Hypertension is well-controlled with hydrochlorothiazide 25 mg and lisinopril 10 mg daily. Blood pressure is monitored regularly, and current levels are excellent. 4. Hyperlipidemia, unspecified E78.5 Hyperlipidemia is managed with rosuvastatin 5 mg every other day, resulting in excellent cholesterol levels. 5. Vitamin D deficiency, unspecified E55.9 Vitamin D deficiency is managed with supplementation every other day, maintaining normal levels. Orders: Orders Vitamin D 25-OH Total 6 Months E55.9 - Vitamin D deficiency, unspecified Comprehensive [place]. Panel Fast 6 Months I10 - Essential (primary) hypertension Lipid Panel 6 Months E78.5 - Hyperlipidemia, unspecified
== END 2025-07-14 08:03 | disposition home or self-care (01) ==
LOC: HO.HMCH 07:23
PROVIDERS: PCP Internal Medicine; Visit Provider Internal Medicine
DX: I10 Essential (primary) hypertension (principal); E78.5 Hyperlipidemia, unspecified; E55.9 Vitamin D deficiency, unspecified; R73.02 Impaired glucose tolerance (oral); M22.41 Chondromalacia patellae, right knee

== ENCOUNTER → 2025-07-14 07:22 | Outpatient (BNVA) | payer MEDICARE, SELFPAY | PROVIDERS: PCP Internal Medicine; Visit Provider Internal Medicine | DX: I10 Essential (primary) hypertension (principal); E78.5 Hyperlipidemia, unspecified; E55.9 Vitamin D deficiency, unspecified; R73.03 Prediabetes; M22.41 Chondromalacia patellae, right knee | CPT/HCPCS: 99212 ==

== ENCOUNTER 2025-09-03 11:16 | Outpatient (REF) | payer MEDICARE, SELFPAY | END 2025-09-03 11:17 | disposition home or self-care (01) | LOC: HO.LAB 11:16 | PROVIDERS: PCP Internal Medicine | DX: N39.0 Urinary tract infection, site not specified (principal); M54.50 Low back pain, unspecified; Z13.89 Encounter for screening for other disorder | CPT/HCPCS: 81003; 87086; 99212 ==

== ENCOUNTER 2025-09-03 11:16 | Outpatient (AMB) | payer MEDICARE, SELFPAY ==
[2025-09-03 11:18] VITALS: BP 140/84; PULSE 98; TEMP 36.6; O2SAT 97; BMI 30.4
--- NOTE | 2025-09-03 11:18 | AM.OFFWIN_ITS ---
Intake Vital Signs 09/03/25 11:18 Height 5 ft 1 in Weight 161 lb BMI 30.4 BP 140/84 H Blood Pressure Location Lt brachial Position Sitting Pulse 98 Pulse Source Pulse Oximeter Temp 97.8 F Temp Source Oral Pulse Oximetry (%) 97 Oxygen Delivery Method Room Air Intake Visit Reasons: EP Possible UTI Intake Note: Patient presents c/o right flank pain x3 weeks, burning when urination started yesterday. Patient Tobacco Use Status: Former Tobacco user Allergies cefazolin Allergy (Intermediate, Verified 09/03/25 11:28) hives sulfacetamide Allergy (Verified 09/03/25 11:28) Unknown HPI HPI Comments History of Present Illness Details History - The patient is a 65-year-old individua l presenting with low back pain. - The patient reports right low back kristin n that began some time ago, initially attributed to gym activities. - Despite stopping gym attendance for tw o weeks, the back pain has not improved. - The patient describes the pain as bein g exacerbated by certain movements and notes that it seems to radiate to the hip and groin area. - There is no associated numbness or tin gling in the legs. - Associated urinary symptoms include a constant feeling of needing to urinate but no burning sensation. - The patient was concerned about a poss ible urinary tract or kidney infection. - The patient's exercise regimen at the gym includes running one to three miles, abdominal work, and using leg and arm machines, but no heavy weightlifting. - The patient has been self-treating the pain with a heating pad and ibuprofen 800 mg. - She has not been to the gym to help he al. - She denies dysuria, hematuria, vaginal discharge, n/v/d, fever, or chills. Physical Exam General: cooperative, healthy appearing and comfortable, patient oriented x3 Head: Normal to inspection, normocephalic/atraumatic Effort & Inspection: Normal respiratory effort and able to speak in complete sentences. Cardiac: RRR, no M/R/G noted. Normal S1 and S2. Respiratory: Clear to auscultation bilaterally. No w/r/r noted. Back/spine: No CVA tenderness bilaterally. Cervical, thoracic and lumbar spine normal to inspection. Cervical ROM normal, no midline spinous tenderness noted. Thoracic ROM normal, lumbar ROM normal. No midline vertebral spinous tenderness noted. No step offs noted. No TTP of the thoracic or lumbar paraspinous or paravertebral muscles. No SI joint tenderness noted. DTR are 2+ on the lower extremities noted. Ambulates with a steady gait. Extremities: Straight leg raise test negative on right; Straight leg raise test negative on left; motor strength normal 5/5 bilaterally. Neuro: Sensation intact. Patient was informed and verbally consented to the use of an ambient scribe for clinic note documentation during this visit. [facility] Medical History [place]-Schlatter's disease Overweight (BMI 25.0-29.9) Physical exam Plantar fasciitis, right Dyslipidemia Hypovitaminosis D Essential hypertension Surgical History History of arthroscopy of right knee History of arthroscopy of left knee History of hand surgery History of colonoscopy Family History Father Hypertension Diabetes CVD (cardiovascular disease) Mother Hypertension Thyroid disease Uterine cancer Breast cancer Ovarian cancer Bladder cancer Maternal Aunt Breast cancer Sister Alive and well Social History Housing: Condominium Alcohol intake: current Alcohol intake frequency: a few times a month Alcohol type: beer Patient Tobacco Use Status: Former Tobacco user Tobacco use type: Cigarette Years Smoked: 20 e-Cigarette/Vaping Use: Never Used Second Hand Smoke Exposure: No Advance Directives Date on File: 07/10/20 service: No Current occupational status: employed 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 Current occupational exposures/hazards: No Sexual orientation: Straight/Heterosexual Gender identity: Female Cognitive needs: No Hearing needs: No Vision needs: Yes Review of Systems Const All systems reviewed & are unremarkable except as noted in HPI and below Physical Exam Vital Signs: Last Vital Signs Temp 97.8 F 09/03/25 11:18 Pulse 98 09/03/25 11:18 BP 140/84 H 09/03/25 11:18 Pulse Ox 97 09/03/25 11:18 Oxygen Delivery Method Room Air 09/03/25 11:18 BMI result Body Mass Index 30.4 Results AMB Urinalysis, Automated UA Leukoctes 0 Yousuf/uL Last Edit by Carmelina Cornejo, TOYA on 09/03/25 11:37 UA Nitrite Negative Last Edit by Carmelina Cornejo, PROF[employer] on 09/03/25 11:37 UA Urobilinogen 0.2 mg/dL Last Edit by Carmelina Cornejo, PROFESS[employer] on 09/03/25 11: 37 UA Protein 0 mg/dL Last Edit by Carmelina Cornejo, PROF[employer] on 09/03/25 11:37 UA pH 6.0 Last Edit by Carmelina Cornejo, PROFESS[employer] on 09/03/25 11:37 UA Blood 0 Mata/uL Last Edit by Carmelina Cornejo, PROFESS[employer] on 09/03/25 11:37 UA Specific [place] 1.020 Last Edit by Carmelina Cornejo, PROFESS[employer] on 09/03/25 11 :37 UA Ketone Negative Last Edit by Carmelina Cornejo, PROFESS[employer] on 09/03/25 11:37 UA Bilirubin 0 mg/dL Last Edit by Carmelina Cornejo, PROFESS[employer] on 09/03/25 11:37 UA Glucose 0 mg/dL Last Edit by Carmelina Cornejo, PROFESS[employer] on 09/03/25 11:37 Results Reviewed Results Reviewed: Laboratory Last Values Urine pH (Auto) 6.0 09/03/25 11:35 Specific [place] (Auto) 1.020 09/03/25 11:35 Urine Protein (Auto) 0 mg/dL 09/03/25 11:35 Glucose (UA)(Auto) 0 mg/dL 09/03/25 11:35 Urine Ketones (Auto) Negative 09/03/25 11:35 Urine Blood (Auto) 0 Mata/uL 09/03/25 11:35 Urine Nitrite (Auto) Negative 09/03/25 11:35 Urine Bilirubin (Auto) 0 mg/dL 09/03/25 11:35 Urine Urobilinogen (Auto) 0.2 mg/dL 09/03/25 11:35 Leukocyte Esterase (Auto) 0 Yousuf/uL 09/03/25 11:35 Assessment & Plan Assessment & Plan (1) Low back pain: Code(s): M54.50 - Low back pain, unspecified Qualifiers: Chronicity: acute Back pain laterality: right Sciatica presence: wit hout sciatica Qualified Code(s): M54.50 - Low back pain, unspecified Plan Most likely muscle strain vs UTI vs sciatica UA is negative Plan - The initial urinalysis was clean. - A urine sample will be sent for culture to definitively rule out a urinary tract infection. - If the culture is positive for bacteria, a prescription for antibiotics will be sent to the pharmacy. - The pain is suspected to be musculoskeletal in origin. - Prescribed an anti-inflammatory medication to be taken up to three times a day and a muscle relaxant for nighttime use. - The patient was advised to stop taking ibuprofen and start the prescribed anti-inflammatory, which is less harsh on the stomach. - Recommended continuing with gym activities such as running and walking as it may be beneficial, but to avoid heavy weightlifting. - Advised to continue using a heating pad and performing stretches. - If the pain does not improve with the prescribed medications, a referral for physical therapy will be considered. Orders: Orders AMB Urinalysis Automated Today Z13.9 - Encounter for screening, unspecified Urine Culture Today N39.0 - Urinary tract infection, site not specified Medications: New cyclobenzaprine 5 mg PO Q8H PRN 20 tabs 0RF Muscle Spasm naproxen 500 mg PO Q12H PRN 20 tabs 0RF pain 7 days Coding Level of Care Code Est Pt Level 4 (91194) Diagnoses Acute right-sided low back pain without sciatica M54.50 Chronicity: acute Back pain laterality: right Sciatica presence: without sciatica
== END 2025-09-03 12:13 | disposition home or self-care (01) ==
PROVIDERS: PCP Internal Medicine; Visit Provider Physician Assistant Medical
DX: Z13.9 Encounter for screening, unspecified (principal); M54.50 Low back pain, unspecified